=== PATIENT | male | born 1980 | race Caucasian/White ===

== ENCOUNTER 2018-05-08 22:35 | Emergency (ER) | payer SELFPAY ==
--- NOTE | 2018-05-08 22:48 | EDM.PDOC ---
ED HPI GENERAL MEDICAL PROBLEM - General Stated Complaint: PT CHOKE Time Seen by Provider: 05/08/18 22:44 - History of Present Illness INITIAL COMMENTS - FREE TEXT/NARRATIVE: HISTORY AND PHYSICAL: History of present illness: Patient 37-year-old white male presents status post esophageal food bolus in the form of boneless chicken wing he's had improvement during transport. He's had similar episodes in the past that have resolved spontaneously Review of systems: As per history of present illness and below otherwise all systems reviewed and negative. Past medical history: As per history of present illness and as reviewed below otherwise noncontributory. Surgical history: As per history of present illness and as reviewed below otherwise noncontributory. Social history: No reported history of drug or alcohol abuse. Family history: As per history of present illness and as reviewed below otherwise noncontributory. Physical exam: HEENT: Atraumatic, normocephalic, pupils reactive, negative for conjunctival pallor or scleral icterus, mucous membranes moist, throat clear, neck supple, nontender, trachea midline. Lungs: Clear to auscultation, breath sounds equal bilaterally, chest nontender. Heart: S1S2, regular, negative for clicks, rubs, or JVD. Abdomen: Soft, nondistended, nontender. Negative for masses or hepatosplenomegaly. Negative for costovertebral tenderness. Pelvis: Stable nontender. Genitourinary: Deferred. Rectal: Deferred. Extremities: Atraumatic, negative for cords or calf pain. Neurovascular unremarkable. Neuro: Awake, alert, oriented. Cranial nerves II through XII unremarkable. Cerebellum unremarkable. Motor and sensory unremarkable throughout. Exam nonfocal. Diagnostics: Chest x-ray EKG Therapeutics: None Impression: #1 esophageal food bolus resolved Definitive disposition and diagnosis as appropriate pending reevaluation and review of above. ED ROS GENERAL - Review of Systems Review Of Systems: ROS reveals no pertinent complaints other than HPI. ED EXAM, GENERAL - Physical Exam Exam: See Below (See dictation) Departure - Departure Time of Disposition: 22:46 Disposition: Home, Self-Care 01 Condition: Good Clinical Impression: Odynophagia - Discharge Information Referrals: PCP,None [Primary Care Provider] - Additional Instructions: The following information is given to patients seen in the emergency department who are being discharged to home. This information is to outline your options for follow-up care. We provide all patients seen in our emergency department with a follow-up referral. The need for follow-up, as well as the timing and circumstances, are variable depending upon the specifics of your emergency department visit. If you don't have a primary care physician on staff, we will provide you with a referral. We always advise you to contact your personal physician following an emergency department visit to inform them of the circumstance of the visit and for follow-up with them and/or the need for any referrals to a consulting specialist. The emergency department will also refer you to a specialist when appropriate. This referral assures that you have the opportunity for followup care with a specialist. All of these measure are taken in an effort to provide you with optimal care, which includes your followup. Under all circumstances we always encourage you to contact your private physician who remains a resource for coordinating your care. When calling for followup care, please make the office aware that this follow-up is from your recent emergency room visit. If for any reason you are refused follow-up, please contact the [facility] emergency department at and asked to speak to the emergency department charge nurse. [facility] - General Surgery Professional Building [address] [place] [address], [address] [place] [address] Clear liquids as directed follow-up Gen. surgery about for evaluation and possible endoscopy
--- NOTE | 2018-05-08 23:19 | CR ---
Indication: Possible foreign body in throat Technique: Chest 1 view Comparison: None Findings/Impression: Cardiovascular and mediastinum: Unremarkable cardiomediastinal silhouette for a portable technique. Lungs and pleural space: Lungs are clear. No sign of infiltrate or mass. No sign of pleural effusion. No pneumothorax. Bones and soft tissues: An apparent triangular density projecting over the trachea at the T3 level, although this could be artifactual, related to superimposition of shadows. Correlate with clinical evaluation. Dictated by Dejon Oliver MD @ 05/08/2018 11:17:44 PM Dictated by: Dejon Oliver MD @ 05/08/2018 23:17:50 (Electronically Signed)
== END 2018-05-08 23:45 | disposition home or self-care (01) ==
LOC: MW.ED 22:35
DX: R13.10 Dysphagia, unspecified (principal)
CPT/HCPCS: 71045; 71045-26; 93005; 99284-25

== ENCOUNTER 2018-10-25 11:47 | Emergency (ER) | payer MEDICAID ==
--- NOTE | 2018-10-25 12:01 | EDM.PDOC ---
ED HPI GENERAL MEDICAL PROBLEM - General Chief Complaint: Lower Extremity Injury/Pain Stated Complaint: PAIN IN KNEE Time Seen by Provider: 10/25/18 11:47 Source of Information: Reports: Patient History Limitations: Reports: No Limitations - History of Present Illness INITIAL COMMENTS - FREE TEXT/NARRATIVE: HISTORY AND PHYSICAL: History of present illness: Patient is a 38-year-old male presents to the ED today with concern of left knee pain 2-3 days. Patient denies any trauma or injury to the knee and states that the pain is worse when he puts weight on it. Patient states he is fully able to move the knee without difficulty or pain. Patient denies any prior injury of the knee. She denies any other associated symptoms. Patient denies fever, chills, chest pain, shortness of breath, or cough. Denies headache, neck stiff ness, change in vision, syncope, or near syncope. Denies nausea, vomiting, abdominal pain, diarrhea, constipation, or dysuria. Has not noted any blood in urine or stool. Patient has been eating and drinking appropriately. Review of systems: As per history of present illness and below otherwise all systems reviewed and negative. Past medical history: As per history of present illness and as reviewed below otherwise noncontributory. Surgical history: As per history of present illness and as reviewed below otherwise noncontributory. Social history: See social history for further information Family history: As per history of present illness and as reviewed below otherwise noncontributory. Physical exam: General: Patient is alert, oriented, and in no acute distress. Patient sitting comfortably on exam table. HEENT: Atraumatic, normocephalic, pupils equal and reactive bilaterally, negative for conjunctival pallor or scleral icterus, mucous membranes moist, TMs normal bilaterally, throat clear, neck supple, nontender, trachea midline. No drooling or trismus noted. No meningeal signs. No hot potato voice noted. Lungs: Clear to auscultation, breath sounds equal bilaterally, chest nontender. Heart: S1S2, regular rate and rhythm without overt murmur Abdomen: Soft, nondistended, nontender. Negative for masses or hepatosplenomegaly. Negative for costovertebral tenderness. Pelvis: Stable nontender. Genitourinary: Deferred. Rectal: Deferred. Skin: Intact, warm, dry. No lesions or rashes noted. Extremities: Atraumatic, negative for cords or calf pain. Neurovascular unremarkable. Patient has full range of motion of the knee without difficulty. Patient does express pain when asked to stand on the knee. No obvious deformity of the knee. Dorsalis pedis and posterior tibial pulses grossly intact with capillary refill less than 2 seconds. Neuro: Awake, alert, oriented. Cranial nerves II through XII unremarkable. Cerebellum unremarkable. Motor and sensory unremarkable throughout. Exam nonfocal. Notes: Discussed the importance for follow-up with primary care provider and with orthopedic. Voices understanding and is agreeable to plan of care. Denies any further questions or concerns at this time. Diagnostics: Knee x-ray Therapeutics: Toradol Prescription: Diclofenac Impression: Left knee pain, unspecified Plan: 1. Rest, ice, elevate the affected extremity. You can apply ice 15 minutes on, 15 minutes off. 2. Tylenol and/or Ibuprofen as directed for pain management or discomfort. Take medication as prescribed 3. Follow up with the Orthopedic provider as discussed. Return to the ED as needed and as discussed. Definitive disposition and diagnosis as appropriate pending reevaluation and review of above. - Related Data Allergies Allergy/AdvReac Type Severity Reaction Status Date / Time No Known Allergies Allergy Verified 05/08/18 22:45 Home Meds: Home Meds Diclofenac Sodium [Voltaren] 75 mg PO BIDMEALS PRN #8 tab.cr 10/25/18 [Rx] Past Medical History HEENT History: Reports: None Cardiovascular History: Reports: None Respiratory History: Reports: None Gastrointestinal History: Reports: None Genitourinary History: Reports: None Musculoskeletal History: Reports: None Neurological History: Reports: Headaches, Chronic, Migraines Psychiatric History: Reports: None Endocrine/Metabolic History: Reports: None Hematologic History: Reports: None Immunologic History: Reports: None Oncologic (Cancer) History: Reports: None Dermatologic History: Reports: None - Infectious Disease History Infectious Disease History: Reports: None - Past Surgical History Head Surgeries/Procedures: Reports: None HEENT Surgical History: Reports: None Social & Family History - Family History Family Medical History: Noncontributory - Tobacco Use Smoking Status *Q: Current Every Day Smoker Years of Tobacco use: 20 Packs/Tins Daily: 1 - Caffeine Use Caffeine Use: Reports: None - Recreational Drug Use Recreational Drug Use: No Review of Systems - Review of Systems Review Of Systems: ROS reveals no pertinent complaints other than HPI. ED EXAM, GENERAL - Physical Exam Exam: See Below (See dictation) Course - Vital Signs Last Recorded V/S: Last Vital Signs Temp 36.3 C 10/25/18 11:53 Pulse 84 10/25/18 11:53 Resp 20 10/25/18 11:53 BP 139/91 H 10/25/18 11:53 Pulse Ox 98 10/25/18 11:53 - Orders/Labs/Meds Meds: Medications Discontinued Medications Generic Name Dose Route Start Last Admin Trade Name Freq PRN Reason Stop Dose Admin Ketorolac Tromethamine 60 mg 10/25/18 12:02 10/25/18 12:33 Toradol IM 10/25/18 12:03 60 mg ONETIME ONE Administration Departure - Departure Time of Disposition: 12:43 Disposition: Home, Self-Care 01 Clinical Impression: Knee pain Qualifiers: Chronicity: acute Laterality: left Qualified Code(s): M25.562 - Pain in left knee - Discharge Information Prescriptions: Diclofenac Sodium [Voltaren] 75 mg PO BIDMEALS PRN #8 tab.cr PRN Reason: Pain Forms: ED Department Discharge Additional Instructions: The following information is given to patients seen in the emergency department who are being discharged to home. This information is to outline your options for follow-up care. We provide all patients seen in our emergency department with a follow-up referral. The need for follow-up, as well as the timing and circumstances, are variable depending upon the specifics of your emergency department visit. If you don't have a primary care physician on staff, we will provide you with a referral. We always advise you to contact your personal physician following an emergency department visit to inform them of the circumstance of the visit and for follow-up with them and/or the need for any referrals to a consulting specialist. The emergency department will also refer you to a specialist when appropriate. This referral assures that you have the opportunity for follow-up care with a specialist. All of these measure are taken in an effort to provide you with optimal care, which includes your follow-up. Under all circumstances we always encourage you to contact your private physician who remains a resource for coordinating your care. When calling for follow-up care, please make the office aware that this follow-up is from your recent emergency room visit. If for any reason you are refused follow-up, please contact the [facility] Emergency Department at and asked to speak to the emergency department charge nurse. [facility] [address] [place] [address] [address] [facility] Professional [facility] [address], [address] [place] [address] 1. Rest, ice, elevate the affected extremity. You can apply ice 15 minutes on, 15 minutes off. 2. Tylenol and/or Ibuprofen as directed for pain management or discomfort. Take medication as prescribed 3. Follow up with the Orthopedic provider as discussed. Return to the ED as needed and as discussed.
[2018-10-25] MEDS ORDERED: Ketorolac 60 MG/2 ML SDV IM ONE (12:02)
--- NOTE | 2018-10-25 12:42 | CR ---
INDICATION: Pain, no injury to knee. TECHNIQUE: Left knee three views COMPARISON: None FINDINGS AND IMPRESSION: No knee joint effusion. Normal alignment. No fracture. No significant degenerative changes. No soft tissue swelling. Dictated by Nichole German MD @ 10/25/2018 12:40:49 PM Dictated by: Nichole German MD @ 10/25/2018 12:40:56 (Electronically Signed)
== END 2018-10-25 15:00 | disposition home or self-care (01) ==
LOC: MW.ED 11:47
DX: M25.562 Pain in left knee (principal); F17.210 Nicotine dependence, cigarettes, uncomplicated
CPT/HCPCS: 73562; 96372; 99283; J1885

== ENCOUNTER 2018-10-29 12:19 | Emergency (ER) | payer MEDICAID ==
[2018-10-29] MEDS ORDERED: Sodium Chloride 0.9% 1,000 ML IV ONE (12:20)
--- NOTE | 2018-10-29 12:32 | EDM.PDOC ---
ED HPI GENERAL MEDICAL PROBLEM - General Stated Complaint: SEIZURE Time Seen by Provider: 10/29/18 12:23 Source of Information: Reports: Patient, EMS History Limitations: Reports: No Limitations - History of Present Illness INITIAL COMMENTS - FREE TEXT/NARRATIVE: HISTORY AND PHYSICAL: History of present illness: Patient is a 38-year-old male who presents to the emergency room by EMS after a syncopal event. Patient was at work when it was witnessed him having a syncopal event. States there may have been some seizure-like activity. Upon EMS arrival he appeared drowsy but alert. Patient does have a history of drug use, stating he last smoked meth yesterday. EMS did give 2 mg of Narcan which did not alleviate any of his symptoms/presentation. Upon arrival the patient is alert and oriented. He states he woke up and felt fine, proceeding to work. He states prior to his syncopal event he started to feel dizzy and lightheaded. His current complaint is feeling "out of it". He denies any pain at this time. Denies any urinary or fecal incontinence. No previous history of seizures or syncopal events. Patient denies any fever, chills, headache, change in vision, neck stiffness or pain. Denies any chest pain, back pain, shortness of breath or cough. Denies any abdominal pain, nausea, vomiting, diarrhea, constipation or dysuria. Patient had been eating and drinking appropriately. Review of systems: As per history of present illness and below otherwise all systems reviewed and negative. Past medical history: As per history of present illness and as reviewed below otherwise noncontributory. Surgical history: As per history of present illness and as reviewed below otherwise noncontributory. Social history: See social history for further information Family history: As per history of present illness and as reviewed below otherwise noncontributory. Physical exam: General: Well-developed and well-nourished 38-year-old male. Alert and oriented. Drowsy appearing but easily arousable. Nontoxic appearing and in no acute distress. Vital signs are stable and have been reviewed by me. HEENT: Atraumatic, normocephalic, pupils equal and reactive bilaterally, negative for conjunctival pallor or scleral icterus, mucous membranes moist, TMs normal bilaterally, throat clear, neck supple, nontender, trachea midline. No drooling or trismus noted. No meningeal signs. No hot potato voice noted. Lungs: Clear to auscultation, breath sounds equal bilaterally, chest nontender. Heart: S1S2, regular rate and rhythm without overt murmur Abdomen: Soft, nondistended, nontender. Negative for masses or hepatosplenomegaly. Negative for costovertebral tenderness. Pelvis: Stable nontender. Genitourinary: Deferred. Rectal: Good rectal tone. C-spine/Back: No pinpoint vertebral tenderness upon palpation. No crepitus, step -offs or obvious deformities. Patient is able to move all extremities without difficulty or deficits. Able to lift his toes up towards his nose with good strength bilaterally. Skin: Intact, warm, dry. No lesions or rashes noted. Extremities: Atraumatic, moves all extremities per self without difficulty or deficits, negative for cords or calf pain. Neurovascular unremarkable. Neuro: Awake, alert, oriented. Cranial nerves II through XII unremarkable. Cerebellum unremarkable. Motor and sensory unremarkable throughout. Exam nonfocal. Notes: Lab work is unremarkable with the exception of slightly lowered potassium level. Head CT is normal. EKG shows no acute findings. Vital signs are stable and have been reviewed by me. Discussed with patient the diagnostics. He is comfortable being discharged to home. Alter and orientated. I will give him time off of work to rest the remainder of the day. Supportive care measures were reviewed and discussed. Voices understanding and is agreeable to plan of care. Denies any further questions or concerns at this time. Diagnostics: Head CT, CXR, CBC, CMP, troponin, EKG, orthostatic vital signs, UA, urine drug screen Therapeutics: IV fluid Prescription: K-Dur x 5 days Impression: Hypokalemia Syncope Drug Abuse Plan: 1. Stop drug use. Your potassium was slightly low today. Please follow-up with your primary care provider to have your labs redrawn in the next week or so. 2. Get plenty of Rest. Encourage fluids to prevent dehydration. Please use Tylenol and/or Ibuprofen as needed for pain and fever management. 3. Please follow up with your primary care provider as we discussed. Return to the ED as needed as discussed. Definitive disposition and diagnosis as appropriate pending reevaluation and review of above. - Related Data Allergies Allergy/AdvReac Type Severity Reaction Status Date / Time No Known Allergies Allergy Verified 10/29/18 12:24 Home Meds: Home Meds Potassium Chloride [K-Tab ER] 40 meq PO DAILY 5 Days #10 tablet.er 10/29/18 [Rx] Past Medical History HEENT History: Reports: None Cardiovascular History: Reports: None Respiratory History: Reports: None Gastrointestinal History: Reports: None Genitourinary History: Reports: None Musculoskeletal History: Reports: None Neurological History: Reports: Headaches, Chronic, Migraines Psychiatric History: Reports: None Endocrine/Metabolic History: Reports: None Hematologic History: Reports: None Immunologic History: Reports: None Oncologic (Cancer) History: Reports: None Dermatologic History: Reports: None - Infectious Disease History Infectious Disease History: Reports: None - Past Surgical History Head Surgeries/Procedures: Reports: None HEENT Surgical History: Reports: None Social & Family History - Family History Family Medical History: Noncontributory - Caffeine Use Caffeine Use: Reports: None ED ROS GENERAL - Review of Systems Review Of Systems: ROS reveals no pertinent complaints other than HPI. ED EXAM, GENERAL - Physical Exam Exam: See Below (See dictation) Course - Vital Signs Last Recorded V/S: Last Vital Signs Temp 97.6 F 10/29/18 12:25 Pulse 97 10/29/18 12:25 Resp 18 10/29/18 12:25 BP 137/87 10/29/18 12:25 Pulse Ox 99 10/29/18 12:25 Orthostatic Blood Pressure [ 124/89 Standing] Orthostatic Blood Pressure [ 117/85 Sitting] Orthostatic Blood Pressure [ 124/85 Supine] - Orders/Labs/Meds Orders: Active Orders 24 hr Category Date Time Status EKG Documentation Completion [RC] STAT Care 10/29/18 12:20 Active Orthostatic Vital Signs [RC] ASDIRECTED Care 10/29/18 12:20 Active Potassium Chloride [Klor-Con M20] Med 10/29/18 13:15 Active 40 meq PO DAILY Medication Orders Potassium Chloride (Klor-Con M20) 40 meq PO DAILY IJEOMA Labs: Laboratory Tests 10/29/18 10/29/18 10/29/18 Range/Units 12:22 12:22 12:57 WBC 7.08 (4.0-11.0) K/uL RBC 4.37 L (4.50-5.90) M/uL Hgb 14.2 (13.0-17.0) g/dL Hct 40.5 (38.0-50.0) % MCV 92.7 (80.0-98.0) fL MCH 32.5 H (27.0-32.0) pg MCHC 35.1 (31.0-37.0) g/dL RDW Std Deviation 42.2 (28.0-62.0) fl RDW Coeff of Michele 12 (11.0-15.0) % Plt Count 298 (150-400) K/uL MPV 8.70 (7.40-12.00) fL Neut % (Auto) 65.4 (48.0-80.0) % Lymph % (Auto) 21.5 (16.0-40.0) % Moca % (Auto) 9.3 (0.0-15.0) % Eos % (Auto) 3.1 (0.0-7.0) % Baso % (Auto) 0.7 (0.0-1.5) % Neut # (Auto) 4.6 (1.4-5.7) K/uL Lymph # (Auto) 1.5 (0.6-2.4) K/uL Moca # (Auto) 0.7 (0.0-0.8) K/uL Eos # (Auto) 0.2 (0.0-0.7) K/uL Baso # (Auto) 0.1 (0.0-0.1) K/uL Nucleated RBC % 0.0 /100WBC Nucleated RBCs # 0 K/uL Sodium 137 (136-148) mmol/L Potassium 3.1 L (3.5-5.1) mmol/L Chloride 103 (98-107) mmol/L Carbon Dioxide 25.0 (21.0-32.0) mmol/L BUN 17 (7.0-18.0) mg/dL Creatinine 0.9 (0.8-1.3) mg/dL Est Cr Clr Drug Dosing 102.51 mL/min Estimated GFR (MDRD) > 60.0 ml/min Glucose 153 H (74-106) mg/dL Calcium 8.5 (8.5-10.1) mg/dL Total Bilirubin 0.8 (0.2-1.0) mg/dL AST 93 H (15-37) IU/L ALT 103 H (14-63) IU/L Alkaline Phosphatase 75 (46-116) U/L Troponin I < 0.050 (0.000-0.056) ng/mL Total Protein 6.5 (6.4-8.2) g/dL Albumin 3.1 L (3.4-5.0) g/dL Globulin 3.4 (2.6-4.0) g/dL Albumin/Globulin Ratio 0.9 (0.9-1.6) Urine Color YELLOW Urine Appearance CLEAR Urine pH 8.5 H (5.0-8.0) Ur Specific [place] 1.010 (1.001-1.035) Urine Protein TRACE H (NEGATIVE) mg/dL Urine Glucose (UA) NEGATIVE (NEGATIVE) mg/dL Urine Ketones NEGATIVE (NEGATIVE) mg/dL Urine Occult Blood NEGATIVE (NEGATIVE) Urine Nitrite NEGATIVE (NEGATIVE) Urine Bilirubin NEGATIVE (NEGATIVE) Urine Urobilinogen 1.0 (<2.0) EU/dL Ur Leukocyte Esterase NEGATIVE (NEGATIVE) Urine RBC NONE SEEN (0-2/HPF) Urine WBC NONE SEEN (0-5/HPF) Ur Epithelial Cells NOT SEEN (NONE-FEW) Urine Bacteria RARE (NEGATIVE) Urine Opiates Screen (NEGATIVE) Ur Oxycodone Screen (NEGATIVE) Urine Methadone Screen (NEGATIVE) Ur Barbiturates Screen (NEGATIVE) Ur Phencyclidine Scrn (NEGATIVE) Ur Amphetamine Screen (NEGATIVE) U Methamphetamines Scrn (NEGATIVE) U Benzodiazepines Scrn (NEGATIVE) U Cocaine Metab Screen (NEGATIVE) U Marijuana (THC) Screen (NEGATIVE) 10/29/18 Range/Units 12:57 WBC (4.0-11.0) K/uL RBC (4.50-5.90) M/uL Hgb (13.0-17.0) g/dL Hct (38.0-50.0) % MCV (80.0-98.0) fL MCH (27.0-32.0) pg MCHC (31.0-37.0) g/dL RDW Std Deviation (28.0-62.0) fl RDW Coeff of Michele (11.0-15.0) % Plt Count (150-400) K/uL MPV (7.40-12.00) fL Neut % (Auto) (48.0-80.0) % Lymph % (Auto) (16.0-40.0) % Moca % (Auto) (0.0-15.0) % Eos % (Auto) (0.0-7.0) % Baso % (Auto) (0.0-1.5) % Neut # (Auto) (1.4-5.7) K/uL Lymph # (Auto) (0.6-2.4) K/uL Moca # (Auto) (0.0-0.8) K/uL Eos # (Auto) (0.0-0.7) K/uL Baso # (Auto) (0.0-0.1) K/uL Nucleated RBC % /100WBC Nucleated RBCs # K/uL Sodium (136-148) mmol/L Potassium (3.5-5.1) mmol/L Chloride (98-107) mmol/L Carbon Dioxide (21.0-32.0) mmol/L BUN (7.0-18.0) mg/dL Creatinine (0.8-1.3) mg/dL Est Cr Clr Drug Dosing mL/min Estimated GFR (MDRD) ml/min Glucose (74-106) mg/dL Calcium (8.5-10.1) mg/dL Total Bilirubin (0.2-1.0) mg/dL AST (15-37) IU/L ALT (14-63) IU/L Alkaline Phosphatase (46-116) U/L Troponin I (0.000-0.056) ng/mL Total Protein (6.4-8.2) g/dL Albumin (3.4-5.0) g/dL Globulin (2.6-4.0) g/dL Albumin/Globulin Ratio (0.9-1.6) Urine Color Urine Appearance Urine pH (5.0-8.0) Ur Specific [place] (1.001-1.035) Urine Protein (NEGATIVE) mg/dL Urine Glucose (UA) (NEGATIVE) mg/dL Urine Ketones (NEGATIVE) mg/dL Urine Occult Blood (NEGATIVE) Urine Nitrite (NEGATIVE) Urine Bilirubin (NEGATIVE) Urine Urobilinogen (<2.0) EU/dL Ur Leukocyte Esterase (NEGATIVE) Urine RBC (0-2/HPF) Urine WBC (0-5/HPF) Ur Epithelial Cells (NONE-FEW) Urine Bacteria (NEGATIVE) Urine Opiates Screen NEGATIVE (NEGATIVE) Ur Oxycodone Screen NEGATIVE (NEGATIVE) Urine Methadone Screen NEGATIVE (NEGATIVE) Ur Barbiturates Screen NEGATIVE (NEGATIVE) Ur Phencyclidine Scrn NEGATIVE (NEGATIVE) Ur Amphetamine Screen POSITIVE (NEGATIVE) U Methamphetamines Scrn POSITIVE (NEGATIVE) U Benzodiazepines Scrn NEGATIVE (NEGATIVE) U Cocaine Metab Screen NEGATIVE (NEGATIVE) U Marijuana (THC) Screen NEGATIVE (NEGATIVE) Meds: Medications Generic Name Dose Route Start Last Admin Trade Name Freq PRN Reason Stop Dose Admin Potassium Chloride 40 meq 10/29/18 13:15 Klor-Con M20 PO DAILY IJEOMA Discontinued Medications Generic Name Dose Route Start Last Admin Trade Name Freq PRN Reason Stop Dose Admin Sodium Chloride 1,000 mls @ 999 mls/hr 10/29/18 12:20 10/29/18 12:38 Normal Saline IV 10/29/18 13:20 999 mls/hr STAT ONE Administration Departure - Departure Time of Disposition: 13:23 Disposition: Home, Self-Care 01 Clinical Impression: Hypokalemia, Drug abuse Syncope Qualifiers: Syncope type: unspecified Qualified Code(s): R55 - Syncope and collapse - Discharge Information Prescriptions: Potassium Chloride [K-Tab ER] 40 meq PO DAILY 5 Days #10 tablet.er Instructions: Syncope, [id number] Referrals: PCP,None [Ordering Only Provider] - Forms: ED Department Discharge Additional Instructions: The following information is given to patients seen in the emergency department who are being discharged to home. This information is to outline your options for follow-up care. We provide all patients seen in our emergency department with a follow-up referral. The need for follow-up, as well as the timing and circumstances, are variable depending upon the specifics of your emergency department visit. If you don't have a primary care physician on staff, we will provide you with a referral. We always advise you to contact your personal physician following an emergency department visit to inform them of the circumstance of the visit and for follow-up with them and/or the need for any referrals to a consulting specialist. The emergency department will also refer you to a specialist when appropriate. This referral assures that you have the opportunity for follow-up care with a specialist. All of these measure are taken in an effort to provide you with optimal care, which includes your follow-up. Under all circumstances we always encourage you to contact your private physician who remains a resource for coordinating your care. When calling for follow-up care, please make the office aware that this follow-up is from your recent emergency room visit. If for any reason you are refused follow-up, please contact the [facility] Emergency Department at and asked to speak to the emergency department charge nurse. [facility] [address] [place] [address] [facility] [address] [place] [address] 1. Stop drug use. Your potassium was slightly low today. Please follow-up with your primary care provider to have your labs redrawn in the next week or so. 2. Get plenty of Rest. Encourage fluids to prevent dehydration. Please use Tylenol and/or Ibuprofen as needed for pain and fever management. 3. Please follow up with your primary care provider as we discussed. Return to the ED as needed as discussed. - My Orders Last 24 Hours: My Active Orders 10/29/18 12:20 EKG Documentation Completion [RC] STAT Orthostatic Vital Signs [RC] ASDIRECTED 10/29/18 13:15 Potassium Chloride [Klor-Con M20] 40 meq PO DAILY - Assessment/Plan Last 24 Hours: My Active Orders 10/29/18 12:20 EKG Documentation Completion [RC] STAT Orthostatic Vital Signs [RC] ASDIRECTED 10/29/18 13:15 Potassium Chloride [Klor-Con M20] 40 meq PO DAILY
[2018-10-29 13:02] LABS: CHLORIDE,CL 103 mmol/L (98-107); SODIUM,NA 137 mmol/L (136-148)
--- NOTE | 2018-10-29 13:06 | CT ---
EXAMINATION: Non contrast CT head. Coronal and sagittal reformats. HISTORY: Syncope FINDINGS: No evidence of intra or extra axial hemorrhage, mass, midline shift, hydrocephalus or edema. No hypoattenuation changes in the major vascular territories to suggest acute infarct. No abnormal intracranial calcifications are detected. No evidence of substantial vascular calcifications. Paranasal sinuses and mastoid air cells are well aerated without substantial findings. Pituitary fossa appears unremarkable. Orbits and globes are symmetric. Calvarium is intact. No evidence of skull fracture. IMPRESSION: No acute intracranial findings.
[2018-10-29] MEDS ORDERED: Potassium Chloride 20 MEQ Tab.ER PO SCH (13:15)
== END 2018-10-29 13:33 | disposition home or self-care (01) ==
LOC: MW.ED 12:19
DX: R55 Syncope and collapse (principal); E87.6 Hypokalemia; F15.10 Other stimulant abuse, uncomplicated
CPT/HCPCS: 36415; 70450; 80053; 80305; 81001; 84484; 85025; 93005; 96360; 99285; A9270; J7040; 99284

== ENCOUNTER 2018-12-01 01:49 | Emergency (ER) | payer MEDICAID ==
[2018-12-01] MEDS ORDERED: Sodium Chloride 0.9% 1,000 ML IV ONE (02:07)
[2018-12-01] MEDS ORDERED: methylPREDNISolone Sodium Succinate 125 MG/2 ML SDV IVPUSH ONE (02:07)
[2018-12-01] MEDS ORDERED: diphenhydrAMINE 50 MG/ML SDV IVPUSH ONE (02:07)
[2018-12-01] MEDS ORDERED: Ondansetron 4 MG/2 ML SDV IVPUSH ONE (02:07)
[2018-12-01] MEDS ORDERED: Ketorolac 30 MG/ML SDV IVPUSH ONE (02:07)
[2018-12-01] MEDS ORDERED: Sodium Chloride 0.9% 10 ML Syringe FLUSH PRN (02:07)
[2018-12-01] MEDS ORDERED: Sodium Chloride 0.9% 2.5 ML Syringe FLUSH PRN (02:07)
--- NOTE | 2018-12-01 02:13 | EDM.PDOC ---
ED HPI GENERAL MEDICAL PROBLEM - General Chief Complaint: Headache Stated Complaint: AMB Time Seen by Provider: 12/01/18 02:02 - History of Present Illness INITIAL COMMENTS - FREE TEXT/NARRATIVE: HISTORY AND PHYSICAL: History of present illness: The patient is a 38-year-old male who presents with a frontal headache that started while he was at work and came via EMS for evaluation. The patient says that he has headaches every single day for the last 3 years but never wakes from sleep with them. The patient works overnight houseperson and said that he slept fine and got up and went to work and while he was at work headaches seem to get worse although he has a headache before he went to work and took ibuprofen over- the-counter. He has no prescribed medications for these headaches nor has he ever seen her provider about them to get a formal diagnosis or have any formal evaluation. He denies any recent trauma fevers runny nose sinus congestion or drainage sore throat or ear pain. He has no neck pain chest pain or shortness of breath no vomiting or diarrhea and he currently has no nausea. The patient says he does smoke cigarettes but denies drug use; it should be noted that he was here last month in October for syncopal event and admitted to meth use but on my last evening of that with him he says that he has not used since that visit. He does not drink an excessive amount of caffeine and tries to push hydration. He describes his headache as frontal part of his head and scalp but not in the back or time does not localize right or left. His headache that he is having currently is the same headache he has pretty much every day it is just worse than usual and he was at work and sent here. Review of systems: As per history of present illness and below otherwise all systems reviewed and negative. Past medical history: As per history of present illness and as reviewed below otherwise noncontributory. Surgical history: As per history of present illness and as reviewed below otherwise noncontributory. Social history: No reported history of drug or alcohol abuse. Family history: As per history of present illness and as reviewed below otherwise noncontributory. Physical exam: General: Well-developed well-nourished thin man who is nontoxic and vital signs were noted by me. Refers to keep his eyes closed and says that the light bothers him. HEENT: Atraumatic, normocephalic, pupils reactive, negative for conjunctival pallor or scleral icterus, mucous membranes moist, throat clear, neck supple, nontender, trachea midline. There is some tenderness when I palpate the frontal scalp throughout but there are no soft tissue swelling defects or deformities, there is no cervical adenopathy thyromegaly or nuchal rigidity and no discrete sinus tenderness with palpation. Lungs: Clear to auscultation, breath sounds equal bilaterally, chest nontender. Heart: S1S2, regular, negative for clicks, rubs, or JVD. Abdomen: Soft, nondistended, nontender. Negative for masses or hepatosplenomegaly. NABS Pelvis: Stable nontender. Genitourinary: Deferred. Rectal: Deferred. Extremities: Atraumatic, negative for cords or calf pain. Neurovascular unremarkable. Full range of motion Neuro: Awake, alert, oriented. Cranial nerves II through XII unremarkable. Cerebellum unremarkable. Motor and sensory unremarkable throughout. Exam nonfocal. Diagnostics: CT scan of the head Therapeutics: IV fluids Toradol Benadryl Solu-Medrol Zofran Imitrex tramadol I discussed with the patient that he needs to be seen by provider in the clinic for evaluation of these chronic headaches and to get a formal diagnosis and/or treatment plan in place to help eliminate or alleviate the headaches when they come. The patient did fall asleep in the ED and when I went in and woke him up he said his headache was improving but was still there. I did tell him that I cannot diagnose migraines but we would try some Imitrex here and I would also give him a tramadol as long as he did get a ride and sen him home with some more tramadol. I again told him that I would likely not be able to obliterate this headache and that he would need to sleep hydrate and follow up in the clinic as these headaches have been ongoing for the last 3 years a daily basis. Impression: Headache acute on chronic Definitive disposition and diagnosis as appropriate pending reevaluation and review of above. headache Pain Score (Numeric/FACES): 8 - Related Data Allergies Allergy/AdvReac Type Severity Reaction Status Date / Time No Known Allergies Allergy Verified 12/01/18 01:54 Home Meds: Home Meds . [No Known Home Meds] 12/01/18 [History] Past Medical History HEENT History: Reports: None Cardiovascular History: Reports: None Respiratory History: Reports: None Gastrointestinal History: Reports: None Genitourinary History: Reports: None Musculoskeletal History: Reports: None Neurological History: Reports: Headaches, Chronic Psychiatric History: Reports: Anxiety, Bipolar, Depression Endocrine/Metabolic History: Reports: None Hematologic History: Reports: None Immunologic History: Reports: None Oncologic (Cancer) History: Reports: None Dermatologic History: Reports: None - Infectious Disease History Infectious Disease History: Reports: Hepatitis B - Past Surgical History Head Surgeries/Procedures: Reports: None HEENT Surgical History: Reports: None Neurological Surgical History: Reports: None Social & Family History - Family History Family Medical History: Noncontributory - Tobacco Use Smoking Status *Q: Current Every Day Smoker Years of Tobacco use: 19 Packs/Tins Daily: 0.5 - Caffeine Use Caffeine Use: Reports: Coffee - Recreational Drug Use Recreational Drug Use: No ED ROS GENERAL - Review of Systems Review Of Systems: ROS reveals no pertinent complaints other than HPI. ED EXAM, GENERAL - Physical Exam Exam: See Below (See dictation) Course - Vital Signs Last Recorded V/S: Last Vital Signs Temp 36.3 C 12/01/18 02:46 Pulse 78 12/01/18 03:01 Resp 18 12/01/18 03:01 BP 99/57 L 12/01/18 03:01 Pulse Ox 99 12/01/18 03:01 - Orders/Labs/Meds Orders: Active Orders 24 hr Category Date Time Status Sodium Chloride 0.9% [Saline Flush] Med 12/01/18 02:07 Active 10 ml FLUSH ASDIRECTED PRN Sodium Chloride 0.9% [Saline Flush] Med 12/01/18 02:07 Active 2.5 ml FLUSH ASDIRECTED PRN Saline Lock Insert [OM.PC] Stat Oth 12/01/18 02:07 Ordered Medication Orders Sodium Chloride (Saline Flush) 10 ml FLUSH ASDIRECTED PRN PRN Reason: Keep Vein Open Sodium Chloride (Saline Flush) 2.5 ml FLUSH ASDIRECTED PRN PRN Reason: Keep Vein Open Meds: Medications Generic Name Dose Route Start Last Admin Trade Name Freq PRN Reason Stop Dose Admin Sodium Chloride 10 ml 12/01/18 02:07 Saline Flush FLUSH ASDIRECTED PRN Keep Vein Open Sodium Chloride 2.5 ml 12/01/18 02:07 Saline Flush FLUSH ASDIRECTED PRN Keep Vein Open Discontinued Medications Generic Name Dose Route Start Last Admin Trade Name Lucia PRN Reason Stop Dose Admin Diphenhydramine HCl 50 mg 12/01/18 02:07 12/01/18 02:32 Benadryl IVPUSH 12/01/18 02:08 50 mg ONETIME ONE Administration Sodium Chloride 1,000 mls @ 999 mls/hr 12/01/18 02:07 12/01/18 02:15 Normal Saline IV 12/01/18 03:07 999 mls/hr STAT ONE Administration Ketorolac Tromethamine 30 mg 12/01/18 02:07 12/01/18 02:16 Toradol IVPUSH 12/01/18 02:08 30 mg ONETIME ONE Administration Methylprednisolone Sodium Succinate 125 mg 12/01/18 02:07 12/01/18 02:37 Solu-Medrol IVPUSH 12/01/18 02:08 125 mg ONETIME ONE Administration Ondansetron HCl 4 mg 12/01/18 02:07 12/01/18 02:32 Zofran IVPUSH 12/01/18 02:08 4 mg ONETIME ONE Administration Sumatriptan Succinate 6 mg 12/01/18 02:57 12/01/18 03:01 Imitrex SUBCUT 12/01/18 02:58 6 mg ONETIME ONE Administration Tramadol HCl 50 mg 12/01/18 03:17 Ultram PO 12/01/18 03:18 ONETIME ONE Departure - Departure Time of Disposition: 03:27 Disposition: Home, Self-Care 01 Condition: Good Clinical Impression: Headache Qualifiers: Headache type: unspecified Headache chronicity pattern: unspecified pattern Intractability: not intractable Qualified Code(s): R51 - Headache - Discharge Information Referrals: PCP,None [Primary Care Provider] - Forms: ED Department Discharge Additional Instructions: The following information is given to patients seen in the emergency department who are being discharged to home. This information is to outline your options for follow-up care. We provide all patients seen in our emergency department with a follow-up referral. The need for follow-up, as well as the timing and circumstances, are variable depending upon the specifics of your emergency department visit. If you don't have a primary care physician on staff, we will provide you with a referral. We always advise you to contact your personal physician following an emergency department visit to inform them of the circumstance of the visit and for follow-up with them and/or the need for any referrals to a consulting specialist. The emergency department will also refer you to a specialist when appropriate. This referral assures that you have the opportunity for followup care with a specialist. All of these measure are taken in an effort to provide you with optimal care, which includes your followup. Under all circumstances we always encourage you to contact your private physician who remains a resource for coordinating your care. When calling for followup care, please make the office aware that this follow-up is from your recent emergency room visit. If for any reason you are refused follow-up, please contact the [facility] emergency department at and ask to speak to the emergency department charge nurse. Primary care- Internal Medicine [facility] Family [address] [id number] Push hydration and rest as much as possible avoiding any heat and stressors. Use [id number] ibuprofen/Motrin in the appropriate doses for your weight, 600 mg every 6-8 hours. You may also add the tramadol you were prescribed from [facility]. Please call and schedule an appointment with your provider or one of ours to further investigate these chronic headaches. Return to ER as needed and as discussed - My Orders Last 24 Hours: My Active Orders 12/01/18 02:07 Sodium Chloride 0.9% [Saline Flush] 10 ml FLUSH ASDIRECTED PRN Sodium Chloride 0.9% [Saline Flush] 2.5 ml FLUSH ASDIRECTED PRN Saline Lock Insert [OM.PC] Stat - Assessment/Plan Last 24 Hours: My Active Orders 12/01/18 02:07 Sodium Chloride 0.9% [Saline Flush] 10 ml FLUSH ASDIRECTED PRN Sodium Chloride 0.9% [Saline Flush] 2.5 ml FLUSH ASDIRECTED PRN Saline Lock Insert [OM.PC] Stat
--- NOTE | 2018-12-01 02:36 | CT ---
INDICATION: Migraine headache TECHNIQUE: CT head without contrast. COMPARISON: None FINDINGS: CSF spaces: Within normal limits for age. Brain parenchyma: The chen-white differentiation is normal. No sign of mass, hemorrhage, or midline shift. Skull base and calvarium: The visualized paranasal sinuses and mastoid air cells demonstrate no acute or significant findings. The visualized orbits are grossly unremarkable. No skull fractures. IMPRESSION: Unremarkable noncontrast head CT. Please note that all CT scans at this facility use dose modulation, iterative reconstruction, and/or weight-based dosing when appropriate to reduce radiation dose to as low as reasonably achievable. Dictated by Tonie Kwong MD @ Dec 01 2018 2:32AM Signed by Dr. Tonie Kwong @ Dec 01 2018 2:33AM
[2018-12-01] MEDS ORDERED: SUMAtriptan 6 MG/0.5 ML SDV SUBCUT ONE (02:57)
[2018-12-01] MEDS ORDERED: traMADol 50 MG Tab PO ONE (03:17)
--- NOTE | 2018-12-01 03:28 | PCM.SN ---
- Free Text/Narrative Note: Called to assist ER MD after failed/attempted spinal tap. Patient consented, to sitting position, prepped draped, local to site, 20 g spinal needle to CSF 1CC to each vial x 4 vials. Patient tolerated well.
== END 2018-12-01 03:39 | disposition home or self-care (01) ==
LOC: MW.ED 01:49
DX: R51 Headache (principal); F17.210 Nicotine dependence, cigarettes, uncomplicated
CPT/HCPCS: 70450; 96361; 96372; 96374; 96375; 99284; A9270; J1200; J1885; J2405; J2930; J3030; J7040

== ENCOUNTER 2019-05-26 02:35 | Emergency (ER) | payer MEDICAID ==
[2019-05-26] MEDS ORDERED: Ondansetron 4 MG/2 ML SDV IVPUSH ONE (02:37)
[2019-05-26] MEDS ORDERED: Sodium Chloride 0.9% 1,000 ML IV ONE (02:37)
[2019-05-26 03:12] LABS: BLOOD UREA NITROGEN,BUN 10 mg/dL (7.0-18.0); CARBON DIOXIDE,CO2 29.7 mmol/L (21.0-32.0); CHLORIDE,CL 106 mmol/L (98-107); GLUCOSE RANDOM 108 mg/dL (74-106); LIPASE 334 U/L (73-393); POTASSIUM,K 4.4 mmol/L (3.5-5.1); SODIUM,NA 141 mmol/L (136-148)
[2019-05-26] MEDS ORDERED: Iopamidol 755 Mg/ML 100 ML Bottle IVPUSH ONE (03:35)
--- NOTE | 2019-05-26 04:10 | CT ---
INDICATION: Periumbilical pain with emesis. TECHNIQUE: CT abdomen and pelvis acquired with 100 cc Isovue 370 intravenous contrast. COMPARISON: None. FINDINGS: Lower chest: Unremarkable. Liver: Unremarkable. Normal in size and attenuation. No masses. Gallbladder and bile ducts: Unremarkable. No stones or inflammation. No biliary dilatation. Pancreas: Unremarkable. No mass or inflammation. Spleen: Unremarkable. Normal in size. No masses. Adrenal glands: Unremarkable. No nodules. Kidneys: Symmetric enhancement without hydronephrosis subcentimeter hypodense lesions both kidneys which are too small for characterization although visually likely represent cysts. GI tract: No dilated loops of large or small intestine. Appendix partially seen and where identified appears unremarkable. No right lower quadrant inflammation. Mild fold thickening questioned at the proximal small bowel (203, 33). Vasculature: Atherosclerosis without abdominal aortic aneurysm. Pelvis: Unremarkable. Bones: Unremarkable for age. IMPRESSION: 1. Mild proximal small bowel fold thickening questioned. There is a bit nonspecific although most commonly seen in enteritis in the acute setting. 2. Otherwise essentially unremarkable abdomen and pelvis CT as above. Please note that all CT scans at this facility use dose modulation, iterative reconstruction, and/or weight-based dosing when appropriate to reduce radiation dose to as low as reasonably achievable. Dictated by Mario Chung MD @ May 26 2019 4:00AM Signed by Dr. Mario Chung @ May 26 2019 4:09AM
--- NOTE | 2019-05-26 04:34 | EDM.PDOC ---
ED HPI GENERAL MEDICAL PROBLEM - General Chief Complaint: Gastrointestinal Problem Stated Complaint: AMB Time Seen by Provider: 05/26/19 03:00 - History of Present Illness INITIAL COMMENTS - FREE TEXT/NARRATIVE: HPI 38-year-old male presents for evaluation of nausea and vomiting of 3-4 days duration. Continues to take PO adequately pass urine, flatus, stool baseline, endorses mild diffuse abdominal discomfort that does not appear to have recently changed. Patient reports he presented for evaluation this evening as he had recurrent symptoms at work and had a syncopal event. Patient denies history of seizures. Notes that he was unconscious for several moments, denies injuries during his LOC. Denies IVDU (within last year), no chest pain, fevers, chills. M/S/F/SocHx notable for: please see HPI; remainder reviewed with patient and in chart. ROS: Negative constitutional, eye, cardiovascular, pulmonary, GI, , MSK, skin , neurologic, psychiatric, endocrine unless noted in the HPI. Exam HR 76, RR 18, BP 119/79, T 36.2C, SaO2 98% on room air. Gen: Pleasant, non-toxic appearing, resting comfortably. HEENT: NC, AT, PEERL, EOMI. Resp: Clear to auscultation bilaterally, normal work of breathing, no accessory muscle usage. Card: Regular rate and rhythm with no murmurs, rubs, or gallops, extremities warm and well perfused. GI: mild, non-reproducible, tenderness to palpation greatest in the epigastrium , left upper quadrant, and periumbilical area, remainder of abdomen nontender to palpation, no rebound, no guarding. : No suprapubic tenderness to palpation. MSK: No visible deformities, strength and tone without visually appreciable deficit. Skin: Normal color with no visible lesions. Neuro: alert and oriented 3, no facial asymmetry, no gaze preference, no slurring of speech. Pupils equal and reactive, EOMI, no facial asymmetry, no nystagmus, phonation intact, SCM 5/5 bilaterally. Cerebellar: bilateral upper extremities without dysmetria. Psych: unusual mood and affect. Labs / Imaging: EKG: SR at [address]-segment elevations or depressions, T-wave inversions or new LBBB. MO interval 171 msec, QTc 401 msec, no delta waves, epsilon waves, coved or saddle ST-segment changes in leads V1-3, preseptal or inferior lead Q-waves, biphasic P-waves, or T-wave inversions; no LVH. WBC 5.9, HB 15.1, sodium 141, potassium 4.4, creatinine 0.7, calcium 9.3, magnesium 1.7, total bilirubin 0.3, AST 106, ALT 95, alkaline phosphatase 70, lipase 334. UA - negative nitrate, negative leukocyte esterase. UDS negative. CT Abd/Pelvis: 1. Mild proximal small bowel fold thickening questioned There is a bit nonspecific although most commonly seen in enteritis in the acute setting. 2 Otherwise essentially unremarkable abdomen and pelvis CT as above. MDM Previous chart, nursing note, labs, imaging, and vitals reviewed. A: 38-year-old male presents for evaluation of nausea and vomiting of 3-4 days duration. DDx: electrode abnormalities, dehydration, conduction abnormalities/arrhythmia, acute appendicitis, enteritis, mesenteric adenitis, epiploic appendagitis, biliary disease, pancreatitis, cannabinoid hyperemesis syndrome. Evaluation: laboratory studies notable for normal white blood cell count, mild ( and not felt to be clinically significant) hypocalcemia and hypomagnesemia. ECG without evidence of arrhythmia or clinically significant conduction abnormalities. Given the unremarkable cardiac ROS and exam strongly doubt valvular abnormalities or endocarditis. Lipase WNL. Given the normal liver enzymes and an absence of positive findings on CT consider biliary disease to be effectively excluded. Imaging without evidence of clinically significant intrabdominal processes, with the exception of features consistent with mild enteritis. This is consistent with the patient's overall history. No features suggestive of sepsis or significant dehydration. ED Course: * 1 L NS and 4 mg Zofran given for symptomatic treatment. * 04:24 - repeat evaluation with patient resting comfortably. Patient with good interval urine output. Abdominal exam benign. Disposition: discharge with RX for Zofran, PCP follow-up for repeat evaluation recommended. Impression: vomiting, syncope, enteritis. Abdomen Pain Score (Numeric/FACES): 4 - Related Data Allergies Allergy/AdvReac Type Severity Reaction Status Date / Time No Known Allergies Allergy Verified 05/26/19 02:38 Home Meds: Home Meds Ondansetron [Zofran ODT] 4 mg PO Q6H PRN #12 tab.dis 05/26/19 [Rx] Past Medical History HEENT History: Reports: None Cardiovascular History: Reports: None Respiratory History: Reports: None Gastrointestinal History: Reports: None Genitourinary History: Reports: None Musculoskeletal History: Reports: None Neurological History: Reports: Headaches, Chronic Psychiatric History: Reports: Anxiety, Bipolar, Depression Endocrine/Metabolic History: Reports: None Insulin Pump Model and Certified Phlebotomy Technician: None Hematologic History: Reports: None Immunologic History: Reports: None Oncologic (Cancer) History: Reports: None Dermatologic History: Reports: None - Infectious Disease History Infectious Disease History: Reports: Hepatitis B - Past Surgical History Head Surgeries/Procedures: Reports: None HEENT Surgical History: Reports: None Neurological Surgical History: Reports: None Social & Family History - Family History Family Medical History: Noncontributory - Tobacco Use Smoking Status *Q: Current Every Day Smoker Years of Tobacco use: 20 Packs/Tins Daily: 0.5 - Caffeine Use Caffeine Use: Reports: None - Recreational Drug Use Recreational Drug Use: Yes Drug Use in Last 12 Months: Yes Recreational Drug Type: Reports: Marijuana/Hashish ED ROS GENERAL - Review of Systems Review Of Systems: See Below ED EXAM, GENERAL - Physical Exam Exam: See Below Course - Vital Signs Last Recorded V/S: Last Vital Signs Temp 36.2 C 05/26/19 02:35 Pulse 76 05/26/19 02:35 Resp 18 05/26/19 02:35 BP 118/79 05/26/19 02:35 Pulse Ox 98 05/26/19 02:35 - Orders/Labs/Meds Orders: Active Orders 24 hr Category Date Time Status EKG 12 Lead [EKG Documentation Completion] [RC] STAT Care 05/26/19 02:37 Active Labs: Laboratory Tests 05/26/19 05/26/19 05/26/19 Range/Units 02:35 02:35 02:40 WBC 5.89 (4.0-11.0) K/uL RBC 4.72 (4.50-5.90) M/uL Hgb 15.1 (13.0-17.0) g/dL Hct 43.9 (38.0-50.0) % MCV 93.0 (80.0-98.0) fL MCH 32.0 (27.0-32.0) pg MCHC 34.4 (31.0-37.0) g/dL RDW Std Deviation 43.8 (28.0-62.0) fl RDW Coeff of Michele 13 (11.0-15.0) % Plt Count 284 (150-400) K/uL MPV 8.80 (7.40-12.00) fL Neut % (Auto) 43.2 L (48.0-80.0) % Lymph % (Auto) 41.4 H (16.0-40.0) % [place] % (Auto) 10.0 (0.0-15.0) % Eos % (Auto) 3.7 (0.0-7.0) % Baso % (Auto) 1.7 H (0.0-1.5) % Neut # (Auto) 2.5 (1.4-5.7) K/uL Lymph # (Auto) 2.4 (0.6-2.4) K/uL [place] # (Auto) 0.6 (0.0-0.8) K/uL Eos # (Auto) 0.2 (0.0-0.7) K/uL Baso # (Auto) 0.1 (0.0-0.1) K/uL Nucleated RBC % 0.0 /100WBC Nucleated RBCs # 0 K/uL Sodium 141 (136-148) mmol/L Potassium 4.4 (3.5-5.1) mmol/L Chloride 106 (98-107) mmol/L Carbon Dioxide 29.7 (21.0-32.0) mmol/L BUN 10 (7.0-18.0) mg/dL Creatinine 0.7 L (0.8-1.3) mg/dL Est Cr Clr Drug Dosing 131.80 mL/min Estimated GFR (MDRD) > 60.0 ml/min Glucose 108 H (74-106) mg/dL Calcium 8.3 L (8.5-10.1) mg/dL Magnesium 1.7 L (1.8-2.4) mg/dL Total Bilirubin 0.3 (0.2-1.0) mg/dL AST 106 H (15-37) IU/L ALT 95 H (14-63) IU/L Alkaline Phosphatase 70 (46-116) U/L Total Protein 6.8 (6.4-8.2) g/dL Albumin 3.2 L (3.4-5.0) g/dL Globulin 3.6 (2.6-4.0) g/dL Albumin/Globulin Ratio 0.9 (0.9-1.6) Lipase 334 (73-393) U/L Urine Color YELLOW Urine Appearance CLEAR Urine pH 6.0 (5.0-8.0) Ur Specific [place] 1.020 (1.001-1.035) Urine Protein NEGATIVE (NEGATIVE) mg/dL Urine Glucose (UA) NEGATIVE (NEGATIVE) mg/dL Urine Ketones NEGATIVE (NEGATIVE) mg/dL Urine Occult Blood NEGATIVE (NEGATIVE) Urine Nitrite NEGATIVE (NEGATIVE) Urine Bilirubin NEGATIVE (NEGATIVE) Urine Urobilinogen 1.0 (<2.0) EU/dL Ur Leukocyte Esterase NEGATIVE (NEGATIVE) Urine Opiates Screen (NEGATIVE) Ur Oxycodone Screen (NEGATIVE) Urine Methadone Screen (NEGATIVE) Ur Barbiturates Screen (NEGATIVE) Ur Phencyclidine Scrn (NEGATIVE) Ur Amphetamine Screen (NEGATIVE) U Methamphetamines Scrn (NEGATIVE) U Benzodiazepines Scrn (NEGATIVE) U Cocaine Metab Screen (NEGATIVE) U Marijuana (THC) Screen (NEGATIVE) 05/26/19 Range/Units 02:40 WBC (4.0-11.0) K/uL RBC (4.50-5.90) M/uL Hgb (13.0-17.0) g/dL Hct (38.0-50.0) % MCV (80.0-98.0) fL MCH (27.0-32.0) pg MCHC (31.0-37.0) g/dL RDW Std Deviation (28.0-62.0) fl RDW Coeff of Michele (11.0-15.0) % Plt Count (150-400) K/uL MPV (7.40-12.00) fL Neut % (Auto) (48.0-80.0) % Lymph % (Auto) (16.0-40.0) % [place] % (Auto) (0.0-15.0) % Eos % (Auto) (0.0-7.0) % Baso % (Auto) (0.0-1.5) % Neut # (Auto) (1.4-5.7) K/uL Lymph # (Auto) (0.6-2.4) K/uL [place] # (Auto) (0.0-0.8) K/uL Eos # (Auto) (0.0-0.7) K/uL Baso # (Auto) (0.0-0.1) K/uL Nucleated RBC % /100WBC Nucleated RBCs # K/uL Sodium (136-148) mmol/L Potassium (3.5-5.1) mmol/L Chloride (98-107) mmol/L Carbon Dioxide (21.0-32.0) mmol/L BUN (7.0-18.0) mg/dL Creatinine (0.8-1.3) mg/dL Est Cr Clr Drug Dosing mL/min Estimated GFR (MDRD) ml/min Glucose (74-106) mg/dL Calcium (8.5-10.1) mg/dL Magnesium (1.8-2.4) mg/dL Total Bilirubin (0.2-1.0) mg/dL AST (15-37) IU/L ALT (14-63) IU/L Alkaline Phosphatase (46-116) U/L Total Protein (6.4-8.2) g/dL Albumin (3.4-5.0) g/dL Globulin (2.6-4.0) g/dL Albumin/Globulin Ratio (0.9-1.6) Lipase (73-393) U/L Urine Color Urine Appearance Urine pH (5.0-8.0) Ur Specific [place] (1.001-1.035) Urine Protein (NEGATIVE) mg/dL Urine Glucose (UA) (NEGATIVE) mg/dL Urine Ketones (NEGATIVE) mg/dL Urine Occult Blood (NEGATIVE) Urine Nitrite (NEGATIVE) Urine Bilirubin (NEGATIVE) Urine Urobilinogen (<2.0) EU/dL Ur Leukocyte Esterase (NEGATIVE) Urine Opiates Screen NEGATIVE (NEGATIVE) Ur Oxycodone Screen NEGATIVE (NEGATIVE) Urine Methadone Screen NEGATIVE (NEGATIVE) Ur Barbiturates Screen NEGATIVE (NEGATIVE) Ur Phencyclidine Scrn NEGATIVE (NEGATIVE) Ur Amphetamine Screen NEGATIVE (NEGATIVE) U Methamphetamines Scrn NEGATIVE (NEGATIVE) U Benzodiazepines Scrn NEGATIVE (NEGATIVE) U Cocaine Metab Screen NEGATIVE (NEGATIVE) U Marijuana (THC) Screen NEGATIVE (NEGATIVE) Meds: Medications Discontinued Medications Generic Name Dose Route Start Last Admin Trade Name Freq PRN Reason Stop Dose Admin Sodium Chloride 1,000 mls @ 1,000 mls/hr 05/26/19 02:37 05/26/19 02:44 Normal Saline IV 05/26/19 03:36 1,000 mls/hr .Bolus ONE Administration Iopamidol 100 ml 05/26/19 03:35 05/26/19 03:36 Isovue-370 (76%) IVPUSH 05/26/19 03:36 100 ml ONETIME ONE Administration Ondansetron HCl 4 mg 05/26/19 02:37 05/26/19 02:44 Zofran IVPUSH 05/26/19 02:38 4 mg ONETIME ONE Administration Departure - Departure Time of Disposition: 04:34 Disposition: Home, Self-Care 01 Clinical Impression: Gastroenteritis - Discharge Information Prescriptions: Ondansetron [Zofran ODT] 4 mg PO Q6H PRN #12 tab.dis PRN Reason: Nausea Instructions: Viral Gastroenteritis, Adult, [id number] Referrals: PCP,None [Primary Care Provider] - Additional Instructions: You were in seen in the [facility] Emergency Department for evaluation of nausea, vomiting, and passing out. At the time of your evaluation you are tentatively suspected to have a viral illness causing nausea and vomiting. You have been prescribed Zofran, an antinausea medication. Please take this as prescribed and follow-up your primary care physician tomorrow for repeat evaluation. You also noted to have mild electrolyte abnormalities, please eat a well-balanced diet and follow up with your primary care physician for repeat evaluation. Please read and follow all of the instructions below. When calling for follow-up care, please make the office aware that this follow- up is from your recent emergency room visit. If for any reason you are refused follow-up, please contact the [facility] Emergency Department at and asked to speak to the emergency department charge nurse. Your care today was limited to identifying and treating emergent medical problems only. Many people have subtle differences in their test results that require follow up with their outpatient physician(s) to correctly determine if this represents a normal variation or concerning abnormality with respect to your specific health. The care given to you today was limited to identifying and treating emergent medical problems - you need to request a copy of all of your medical records from today's visit and follow up with your outpatient physician(s) to review both today's visit and your overall health. If you have any new symptoms or if you are at all concerned about your health please return immediately to the emergency department. Ondansetron (Brand Name: Zofran) * Take one tablet every 6 hours as needed for nausea SIDE EFFECTS: Headache, fever, lightheadedness, dizziness, drowsiness, tiredness , constipation. If these effects persist or worsen, notify your doctor promptly. Many people using this medication do not have serious side effects. Tell your doctor right away if you have any serious side effects, including: stomach pain, muscle stiffness/spasm, vision changes (e.g., temporary loss of vision, blurred vision, uncontrollable eye movements). Get medical help right away if any of these rare but very serious side effects occur: chest pain, fainting, slow/fast/irregular heartbeat. A very serious allergic reaction to this drug is rare. However, get medical help right away if you notice any of the following symptoms of a serious allergic reaction: rash, itching/swelling ( especially of the face/tongue/throat), severe dizziness, trouble breathing. This is not a complete list of possible side effects. If you notice other effects not listed above, contact your doctor or pharmacist. PRECAUTIONS: Before using ondansetron, tell your doctor or pharmacist if you are allergic to it; or to other serotonin blockers (e.g., granisetron); or if you have any other allergies. This product may contain inactive ingredients, which can cause allergic reactions or other problems. Talk to your pharmacist for more details. Before using this medication, tell your doctor or pharmacist your medical history, especially of: irregular heartbeat, liver disease, stomach /intestinal problems (e.g., recent abdominal surgery, ileus, swelling). Ondansetron may cause a condition that affects the heart rhythm (QT prolongation ). QT prolongation can infrequently result in serious (rarely fatal) fast/ irregular heartbeat and other symptoms (such as severe dizziness, fainting) that require immediate medical attention. The risk of QT prolongation may be increased if you have certain medical conditions or are taking other drugs that may affect the heart rhythm (see also Drug Interactions section). Before using ondansetron, tell your doctor or pharmacist if you have any of the following conditions: certain heart problems (heart failure, slow heartbeat, QT prolongation in the EKG), family history of certain heart problems (QT prolongation in the EKG, sudden cardiac ). Low levels of potassium or magnesium in the blood may also increase your risk of QT prolongation. This risk may increase if you use certain drugs (such as diuretics/"water pills") or if you have conditions such as severe sweating, diarrhea, or vomiting. Talk to your doctor about using ondansetron safely. This drug may make you dizzy or drowsy or cause blurred vision. Do not drive, use machinery, or do any activity that requires alertness or clear vision until you are sure you can perform such activities safely. Limit alcoholic beverages. Infants younger than 5 months may be more sensitive to the effects of this drug, especially diarrhea. During , this medication should be used only when clearly needed. Discuss the risks and benefits with your doctor. It is not known if this drug passes into breast milk. Consult your doctor before breast-feeding. DRUG INTERACTIONS: Drug interactions may change how your medications work or increase your risk for serious side effects. This document does not contain all possible drug interactions. Keep a list of all the products you use (including prescription/nonprescription drugs and herbal products) and share it with your doctor and pharmacist. Do not start, stop, or change the dosage of any medicines without your doctor's approval. Some products that may interact with this drug include: apomorphine, tramadol. Many drugs besides ondansetron may affect the heart rhythm (QT prolongation), including dofetilide, pimozide, procainamide, amiodarone, quinidine, sotalol, macrolide antibiotics (such as erythromycin), among others. Therefore, before using ondansetron, report all medications you are currently using to your doctor or pharmacist. Syncope * You have had a fainting (syncopal) spell. A fainting episode is a sudden and brief loss of consciousness. * We do not believe your syncopal episode today was caused by a serious problem. * You should . * Please followup with your primary care physician within 1-2 days for reevaluation, review of your current medications, and further workup or treatment if necessary. There are many causes for syncope and it can be difficult to fully diagnose each cause of syncope in the emergency department. Some of the most common causes of syncope are: * Blood pressure pills and other medications that may lower blood pressure below normal. * Sudden changes in posture (sudden standing). * Standing too long. This can cause blood to pool in the legs. * Seizure disorders. * Low blood sugar (hypoglycemia) of diabetes. * Bearing down to go to the bathroom. This can cause your blood pressure to rise suddenly. Your body compensates by making the blood pressure too low when you stop bearing down. * Hardening of the arteries where the brain temporarily does not receive enough blood. * Irregular heart beat and circulatory problems. * Fear, emotional distress, injury, sight of blood, or illness. Seek immediate medical care if: * You have another fainting episode or faint while lying or sitting down. DO NOT DRIVE YOURSELF. Call 911 if no other help is available. * You have chest pain, are feeling sick to your stomach (nausea), vomiting or abdominal pain. * You have an irregular heartbeat or one that is very fast (pulse over 120 beats per minute). * You have a loss of feeling in some part of your body or lose movement in your arms or legs. * You have difficulty with speech, confusion, severe weakness, or visual problems. * You become sweaty and/or feel light headed. Prescriptions: If you are uninsured or have financial difficulties with filling your prescription(s), you may consider using a free pharmacy discount service such as [employer] ([employer]) or [employer] ([employer]). These services allow you to search for a medication on your phone (or computer) and obtain a coupon that usually has a significant discount from the list reed at a pharmacy. Your physician as well as [facility] does not have a financial relationship with either of these services. You may also wish to speak with your physician to determine if lower cost prescriptions are possible. Obtaining primary care: 1. [facility] provides pediatrics (children), family medicine (children, adults, and some obstetrical care), and internal medicine (adults). Further specialty care is also available. Same day appointments are available. They may be contacted at [phone] and are open Friday through Friday 8 AM to [address] [facility] are located at [place] [address]. 2. [facility] offers family medicine, internal medicine, [facility]ial care hospital, and further specialty care. [facility] may be contacted at [phone]. [facility] is located at [address] [place], [address]. 3. If you have health insurance, please also contact your insurer for a list of accepting providers under your policy, you may contact these providers for further health care. Occupational health: Work related injuries may consider following up with [facility], . Occupational health services are located at [address] [place] [address] and are open Friday through Friday from 7: 30 am to 5:00 pm. Obstetrical and Gynecological Care: [facility], , Friday through Friday 8 AM to 5 PM. [address] [place] [address]. Eyecare: If you have an eye injury you should follow up with your pool nurse or with [facility], at [phone] or [phone] , they are located at [address] [place] [address]. Dental Care * Frankie Garcia DDS. [address] [place], [place]. Ph. [phone] * Chadd Garcia DDS MS. [address] [facility] [address], [place], [place]. Ph. [phone] * Scot Dobbs DDS. [address] [place]. Ph. [phone] * Parveen Pleitez DDS. [address] [facility] [address] [place], [place]. Ph. [phone] * Oumar Dorantes DDS PC. [address] [place], [place]. Ph. [phone] * Ayush Mccabe DDS. [address] [facility]. Ph. [phone] * [facility]. [address] [place], [place]. Ph. [phone] * [facility]. [address] [place] [address], [place], [place]. Ph. [phone] * [facility] [address] [place] [address]. Ph. [phone] * [facility]. [address] [place] [address] [address] [place], [place]. Ph. [phone] * [facility]. [address], [place], [place]. Ph. [phone] Sepsis Event Note - Evaluation Sepsis Screening Result: No Definite Risk - Focused Exam Vital Signs: Vital Signs Temp Pulse Resp BP Pulse Ox 05/26/19 02:35 36.2 C 76 18 118/79 98 Date Exam was Performed: 05/26/19 Time Exam was Performed: 04:30 - My Orders Last 24 Hours: My Active Orders 05/26/19 02:37 EKG 12 Lead [EKG Documentation Completion] [RC] STAT - Assessment/Plan Last 24 Hours: My Active Orders 05/26/19 02:37 EKG 12 Lead [EKG Documentation Completion] [RC] STAT
== END 2019-05-26 04:44 | disposition home or self-care (01) ==
LOC: MW.ED 02:35
DX: K52.9 Noninfective gastroenteritis and colitis, unspecified (principal); R55 Syncope and collapse; F17.210 Nicotine dependence, cigarettes, uncomplicated
CPT/HCPCS: 36415; 74177; 80053; 80305; 81003; 83690; 83735; 85025; 93005; 96361; 96374; 99284; J2405; J7030; Q9967

== ENCOUNTER 2020-01-06 15:27 | Observation (INO) | payer BC, MEDICAID, OTHER ==
[2020-01-06] MEDS ORDERED: Sodium Chloride 0.9% 2.5 ML Syringe FLUSH PRN (15:28)
[2020-01-06] MEDS ORDERED: Sodium Chloride 0.9% 10 ML Syringe FLUSH PRN (15:28)
[2020-01-06] MEDS ORDERED: fentaNYL 50 MCG/ML SDV IVPUSH ONE ×2 (15:28→18:25)
[2020-01-06] MEDS ORDERED: HYDROmorphone 1 MG/ML Syringe IVPUSH ONE (15:53)
--- NOTE | 2020-01-06 15:56 | EDM.PDOC ---
ED [facility] GENERAL MEDICAL PROBLEM - General Chief Complaint: Genitourinary Problem Stated Complaint: EMS ARRIVAL Time Seen by Provider: 01/06/20 15:28 Source of Information: Reports: Patient, Old Records History Limitations: Reports: No Limitations - History of Present Illness INITIAL COMMENTS - FREE TEXT/NARRATIVE: 39-year-old male with past medical history of methamphetamine use and IV drug use presenting with testicular pain. Brought in by ambulance from home. Patient reports the onset of mild right-sided testicular pain yesterday evening after sexual intercourse. He states that this persisted throughout the day and then became dramatically worse approximately 1 hour ago, prompting him to call the ambulance. He denies any history of trauma to the testicles. Denies any fever, penile discharge or lesions. No prior medical or surgical history. No treatment prior to arrival. ROS: A 10-point review of systems was negative, except as noted in the HPI (or in the ROS section of this note). Past medical history: Reviewed, no additional pertinent history. Surgical history: Reviewed in system, no additional pertinent history. Social history: Reviewed in system, no additional pertinent history. Family history: Reviewed in system, no additional pertinent history. PHYSICAL EXAM Vital signs reviewed. Nursing notes reviewed. Constitutional: Awake, alert, non-distressed. Head: Normocephalic, atraumatic. Eyes: EOMI, conjunctiva normal, no discharge, no scleral icterus. Ears, Nose, Throat: External ears and nose normal, moist oral mucosa. Cardiovascular: 2+ radial pulse, capillary refill less than 2 seconds. Pulmonary: normal work of breathing, no accessory muscle use. Abdomen/GI: Soft, nontender, nondistended, no guarding or rigidity, no masses. : The right testicle is elevated compared to the left and there is firmness at the inferior pole of the right testicle. The penis appears normal by external examination. Musculoskeletal: No deformities. Integumentary: Appropriate color for ethnicity, warm, dry, no pallor or jaundice, no rash. Neurologic: Alert, answering questions appropriately, normal speech, no facial droop, moving all extremities well. Psychiatric: Appropriate mood and affect, normal thought process. Scrotum Pain Score (Numeric/FACES): 10 - Related Data Allergies Allergy/AdvReac Type Severity Reaction Status Date / Time No Known Allergies Allergy Verified 01/06/20 20:27 Home Meds: Home Meds . [No Known Home Meds] 01/06/20 [History] Past Medical History HEENT History: Reports: None Cardiovascular History: Reports: None Respiratory History: Reports: None Gastrointestinal History: Reports: None Genitourinary History: Reports: None Musculoskeletal History: Reports: None Neurological History: Reports: Headaches, Chronic Psychiatric History: Reports: Anxiety, Bipolar, Depression Endocrine/Metabolic History: Reports: None Insulin Pump Model and Senior Graduate Advisor: None Hematologic History: Reports: None Immunologic History: Reports: None Oncologic (Cancer) History: Reports: None Dermatologic History: Reports: None - Infectious Disease History Infectious Disease History: Reports: Hepatitis B - Past Surgical History Head Surgeries/Procedures: Reports: None HEENT Surgical History: Reports: None Neurological Surgical History: Reports: None Social & Family History - Family History Family Medical History: Noncontributory - Caffeine Use Caffeine Use: Reports: None - Recreational Drug Use Recreational Drug Use: Yes Drug Use in Last 12 Months: Yes Recreational Drug Type: Reports: Methamphetamine Recreational Drug Use Frequency: Weekly ED ROS GENERAL - Review of Systems Review Of Systems: See Below ED EXAM, RENAL/ - Physical Exam Exam: See Below ED PROCEDURES - Additional/Other Procedure(s) Procedure(s) (Free Text): Procedure: Spermatic cord block Indication: Severe testicular pain Laterality: Right Anesthetic: Lidocaine 1% without epinephrine Volume: 5 mL Details: Alcohol swab was applied to the skin. The needle was advanced into the spermatic cord. Blood was not aspirated. Anesthetic was injected slowly while withdrawing the needle, after infiltrating the entirety of the spermatic cord and the overlying tissue. Complications: None apparent Course - Vital Signs Text/Narrative:: 39-year-old male with severe right testicle pain. Patient [hemodynamically stable, afebrile], well-appearing, looks nontoxic. Differential diagnosis includes but is not limited to: Testicular torsion, epididymitis, hydrocele, kidney stone, UTI, pyelonephritis, hematocele, hernia, orchitis, testicular rupture, tumor, etc. On arrival patient appeared to be in severe pain and localized the pain to the right testicle, which appeared high riding compared to the left and appeared to show diminished cremasteric reflex. I was initially concerned for testicular torsion so I paged the urologist for assistance with the case. 1526: Dr. Ramirez (urology) paged. 1542: Dr. Ramirez (urology) paged again. 1544: Dr. Dorantes called by phone. I advised him of my concern for testicular torsion. I requested Dr. Dorantes come to the emergency department to evaluate the patient. He requested a testicular ultrasound study which is pending. 1610: I performed a right-sided spermatic cord block with 5 mL of 1% lidocaine. instrumentation technician has arrived to perform the ultrasound study. 1740: US read as normal. Pain improved but not subsided. UA pending. To CT for abdomen/pelvis study to look for kidney stone or other etiology of patient's pain. CT abdomen/pelvis shows a small low-density lesion within the left lobe of the liver, possibly a hemangioma. Also visualized a small 2 mm obstructing stone within the distal right ureter of the right kidney. Urinalysis shows large occult blood, trace leukocyte esterase, 40 ketones. Pain is not well controlled, ordered additional fentanyl. Given Zofran for nausea. Urinalysis appears to show possible evidence of infection. Ordered p.o. cephalexin. Given refractory pain, patient will need to be admitted to hospital on observation status for ongoing symptom control of pain and nausea. I spoke with the hospitalist who agrees to admit to observation. Last Recorded V/S: Last Vital Signs Temp 36.6 C 01/07/20 04:32 Pulse 73 01/07/20 04:32 Resp 17 01/07/20 04:32 BP 110/59 L 01/07/20 04:32 Pulse Ox 99 01/07/20 04:32 - Orders/Labs/Meds Orders: Active Orders 24 hr Category Date Time Status Admission Status [Patient Status] [ADT] Stat ADT 01/06/20 18:47 Active Cardiac Monitoring [RC] . DIRECTED Care 01/06/20 15:28 Active Pulse Oximetry [RC] ASDIRECTED Care 01/06/20 15:28 Active CULTURE URINE [RM] Stat Lab 01/06/20 17:34 Received Sodium Chloride 0.9% [Saline Flush] Med 01/06/20 15:28 Active 10 ml FLUSH ASDIRECTED PRN Sodium Chloride 0.9% [Saline Flush] Med 01/06/20 15:28 Active 2.5 ml FLUSH ASDIRECTED PRN Saline Lock Insert [OM.PC] Stat Oth 01/06/20 15:28 Ordered Medication Orders Acetaminophen (Tylenol) 650 mg PO Q4H PRN PRN Reason: Pain/Fever Enoxaparin Sodium (Lovenox) 40 mg SUBCUT Q24H [facility] Last Admin: 01/06/20 20:48 Dose: 40 mg Documented by: EDISON Hydromorphone HCl (Dilaudid) 0.5 mg IVPUSH Q2H PRN PRN Reason: Pain Sodium Chloride (Normal Saline) 1,000 mls @ 200 mls/hr IV ASDIRECTED [facility] Last Admin: 01/07/20 02:37 Dose: 200 mls/hr Documented by: Infusion: 01/07/20 01:49 Dose: 200 mls/hr Documented by: Admin: 01/06/20 20:49 Dose: 200 mls/hr Documented by: EDISON Ceftriaxone Sodium/Dextrose 1 (gm/ Premix) 50 mls @ 100 mls/hr IV Q24H [facility] Last Admin: 01/06/20 21:24 Dose: 100 mls/hr Documented by: EDISON Ondansetron HCl (Zofran) 4 mg IVPUSH Q4H PRN PRN Reason: Nausea/Vomiting Pantoprazole Sodium (Protonix) 40 mg PO ACBREAKFAST [facility] Last Admin: 01/07/20 08:28 Dose: 40 mg Documented by: [id number] Sodium Chloride (Saline Flush) 10 ml FLUSH ASDIRECTED PRN PRN Reason: Keep Vein Open Last Admin: 01/06/20 15:34 Dose: 10 ml Documented by: MARGRETDNIC Sodium Chloride (Saline Flush) 2.5 ml FLUSH ASDIRECTED PRN PRN Reason: Keep Vein Open Last Admin: 01/06/20 15:34 Dose: 2.5 ml Documented by: MARGRETDNRAYMON Tamsulosin HCl (Flomax) 0.4 mg PO DAILY [facility] Last Admin: 01/07/20 08:28 Dose: 0.4 mg Documented by: Admin: 01/06/20 20:48 Dose: 0.4 mg Documented by: EDISON Labs: Laboratory Tests 01/06/20 01/06/20 01/06/20 Range/Units 15:30 15:30 15:30 WBC 9.22 (4.0-11.0) K/uL RBC 4.95 (4.50-5.90) M/uL Hgb 15.9 (13.0-17.0) g/dL Hct 45.0 (38.0-50.0) % MCV 90.9 (80.0-98.0) fL MCH 32.1 H (27.0-32.0) pg MCHC 35.3 (31.0-37.0) g/dL RDW Std Deviation 41.2 (28.0-62.0) fl RDW Coeff of Michele 12 (11.0-15.0) % Plt Count 313 (150-400) K/uL MPV 9.90 (7.40-12.00) fL Neut % (Auto) 49.5 (48.0-80.0) % Lymph % (Auto) 34.4 (16.0-40.0) % Spencer % (Auto) 12.8 (0.0-15.0) % Eos % (Auto) 2.5 (0.0-7.0) % Baso % (Auto) 0.8 (0.0-1.5) % Neut # (Auto) 4.6 (1.4-5.7) K/uL Lymph # (Auto) 3.2 H (0.6-2.4) K/uL Spencer # (Auto) 1.2 H (0.0-0.8) K/uL Eos # (Auto) 0.2 (0.0-0.7) K/uL Baso # (Auto) 0.1 (0.0-0.1) K/uL Nucleated RBC % 0.0 /100WBC Nucleated RBCs # 0 K/uL INR 1.02 Lactate 3.0 H* (0.20-2.00) mmol/L Sodium (136-148) mmol/L Potassium (3.5-5.1) mmol/L Chloride (98-107) mmol/L Carbon Dioxide (21.0-32.0) mmol/L BUN (7.0-18.0) mg/dL Creatinine (0.8-1.3) mg/dL Est Cr Clr Drug Dosing mL/min Estimated GFR (MDRD) ml/min Glucose (74-106) mg/dL Calcium (8.5-10.1) mg/dL Total Bilirubin (0.2-1.0) mg/dL AST (15-37) IU/L ALT (14-63) IU/L Alkaline Phosphatase (46-116) U/L Total Protein (6.4-8.2) g/dL Albumin (3.4-5.0) g/dL Globulin (2.6-4.0) g/dL Albumin/Globulin Ratio (0.9-1.6) Urine Color Urine Appearance Urine pH (5.0-8.0) Ur Specific Wood[place] (1.001-1.035) Urine Protein (NEGATIVE) mg/dL Urine Glucose (UA) (NEGATIVE) mg/dL Urine Ketones (NEGATIVE) mg/dL Urine Occult Blood (NEGATIVE) Urine Nitrite (NEGATIVE) Urine Bilirubin (NEGATIVE) Urine Ictotest Urine Urobilinogen (<2.0) EU/dL Ur Leukocyte Esterase (NEGATIVE) Urine RBC (0-2/HPF) Urine WBC (0-5/HPF) Ur Epithelial Cells (NONE-FEW) Urine Bacteria (NEGATIVE) SARS-CoV-2 RNA (DEZ) (NEGATIVE) SARS CoV-2 RNA Rapid DEZ (NEGATIVE) 01/06/20 01/06/20 01/06/20 Range/Units 15:30 16:05 16:05 WBC (4.0-11.0) K/uL RBC (4.50-5.90) M/uL Hgb (13.0-17.0) g/dL Hct (38.0-50.0) % MCV (80.0-98.0) fL MCH (27.0-32.0) pg MCHC (31.0-37.0) g/dL RDW Std Deviation (28.0-62.0) fl RDW Coeff of Michele (11.0-15.0) % Plt Count (150-400) K/uL MPV (7.40-12.00) fL Neut % (Auto) (48.0-80.0) % Lymph % (Auto) (16.0-40.0) % Spencer % (Auto) (0.0-15.0) % Eos % (Auto) (0.0-7.0) % Baso % (Auto) (0.0-1.5) % Neut # (Auto) (1.4-5.7) K/uL Lymph # (Auto) (0.6-2.4) K/uL Spencer # (Auto) (0.0-0.8) K/uL Eos # (Auto) (0.0-0.7) K/uL Baso # (Auto) (0.0-0.1) K/uL Nucleated RBC % /100WBC Nucleated RBCs # K/uL INR Lactate (0.20-2.00) mmol/L Sodium 138 (136-148) mmol/L Potassium 3.6 (3.5-5.1) mmol/L Chloride 102 (98-107) mmol/L Carbon Dioxide 20.7 L (21.0-32.0) mmol/L BUN 10 (7.0-18.0) mg/dL Creatinine 1.0 (0.8-1.3) mg/dL Est Cr Clr Drug Dosing 81.90 mL/min Estimated GFR (MDRD) > 60.0 ml/min Glucose 94 (74-106) mg/dL Calcium 9.4 (8.5-10.1) mg/dL Total Bilirubin 1.0 (0.2-1.0) mg/dL AST 109 H (15-37) IU/L ALT 154 H (14-63) IU/L Alkaline Phosphatase 93 (46-116) U/L Total Protein 7.8 (6.4-8.2) g/dL Albumin 4.0 (3.4-5.0) g/dL Globulin 3.8 (2.6-4.0) g/dL Albumin/Globulin Ratio 1.1 (0.9-1.6) Urine Color Urine Appearance Urine pH (5.0-8.0) Ur Specific [place] (1.001-1.035) Urine Protein (NEGATIVE) mg/dL Urine Glucose (UA) (NEGATIVE) mg/dL Urine Ketones (NEGATIVE) mg/dL Urine Occult Blood (NEGATIVE) Urine Nitrite (NEGATIVE) Urine Bilirubin (NEGATIVE) Urine Ictotest Urine Urobilinogen (<2.0) EU/dL Ur Leukocyte Esterase (NEGATIVE) Urine RBC (0-2/HPF) Urine WBC (0-5/HPF) Ur Epithelial Cells (NONE-FEW) Urine Bacteria (NEGATIVE) SARS-CoV-2 RNA (DEZ) NEGATIVE (NEGATIVE) SARS CoV-2 RNA Rapid DEZ NEGATIVE (NEGATIVE) 01/06/20 Range/Units 17:38 WBC (4.0-11.0) K/uL RBC (4.50-5.90) M/uL Hgb (13.0-17.0) g/dL Hct (38.0-50.0) % MCV (80.0-98.0) fL MCH (27.0-32.0) pg MCHC (31.0-37.0) g/dL RDW Std Deviation (28.0-62.0) fl RDW Coeff of Michele (11.0-15.0) % Plt Count (150-400) K/uL MPV (7.40-12.00) fL Neut % (Auto) (48.0-80.0) % Lymph % (Auto) (16.0-40.0) % Spencer % (Auto) (0.0-15.0) % Eos % (Auto) (0.0-7.0) % Baso % (Auto) (0.0-1.5) % Neut # (Auto) (1.4-5.7) K/uL Lymph # (Auto) (0.6-2.4) K/uL Spencer # (Auto) (0.0-0.8) K/uL Eos # (Auto) (0.0-0.7) K/uL Baso # (Auto) (0.0-0.1) K/uL Nucleated RBC % /100WBC Nucleated RBCs # K/uL INR Lactate (0.20-2.00) mmol/L Sodium (136-148) mmol/L Potassium (3.5-5.1) mmol/L Chloride (98-107) mmol/L Carbon Dioxide (21.0-32.0) mmol/L BUN (7.0-18.0) mg/dL Creatinine (0.8-1.3) mg/dL Est Cr Clr Drug Dosing mL/min Estimated GFR (MDRD) ml/min Glucose (74-106) mg/dL Calcium (8.5-10.1) mg/dL Total Bilirubin (0.2-1.0) mg/dL AST (15-37) IU/L ALT (14-63) IU/L Alkaline Phosphatase (46-116) U/L Total Protein (6.4-8.2) g/dL Albumin (3.4-5.0) g/dL Globulin (2.6-4.0) g/dL Albumin/Globulin Ratio (0.9-1.6) Urine Color BROWN Urine Appearance CLOUDY Urine pH 8.5 H (5.0-8.0) Ur Specific [place] 1.015 (1.001-1.035) Urine Protein 30 H (NEGATIVE) mg/dL Urine Glucose (UA) NEGATIVE (NEGATIVE) mg/dL Urine Ketones 40 H (NEGATIVE) mg/dL Urine Occult Blood LARGE H (NEGATIVE) Urine Nitrite NEGATIVE (NEGATIVE) Urine Bilirubin SMALL H (NEGATIVE) Urine Ictotest NEGATIVE Urine Urobilinogen 4.0 H (<2.0) EU/dL Ur Leukocyte Esterase TRACE H (NEGATIVE) Urine RBC TOO NUMEROUS TO CT (0-2/HPF) Urine WBC 1-2 (0-5/HPF) Ur Epithelial Cells RARE (NONE-FEW) Urine Bacteria FEW (NEGATIVE) SARS-CoV-2 RNA (DEZ) (NEGATIVE) SARS CoV-2 RNA Rapid DEZ (NEGATIVE) Meds: Medications Generic Name Dose Route Start Last Admin Trade Name Freq PRN Reason Stop Dose Admin Acetaminophen 650 mg 01/06/20 19:46 Tylenol PO Q4H PRN Pain/Fever Enoxaparin Sodium 40 mg 01/06/20 20:00 01/06/20 20:48 Lovenox SUBCUT 40 mg Q24H IJEOMA Administration Hydromorphone HCl 0.5 mg 01/06/20 20:04 Dilaudid IVPUSH Q2H PRN Pain Sodium Chloride 1,000 mls @ 200 mls/hr 01/06/20 19:45 01/07/20 02:37 Normal Saline IV 200 mls/hr ASDIRECTED IJEOMA Administration Ceftriaxone Sodium/Dextrose 1 50 mls @ 100 mls/hr 01/06/20 21:00 01/06/20 21:24 gm/ Premix IV 100 mls/hr Q24H IJEOMA Administration Ondansetron HCl 4 mg 01/06/20 19:45 Zofran IVPUSH Q4H PRN Nausea/Vomiting Pantoprazole Sodium 40 mg 01/07/20 07:30 01/07/20 08:28 Protonix PO 40 mg ACBREAKFAST IJEOMA Administration Sodium Chloride 10 ml 01/06/20 15:28 01/06/20 15:34 Saline Flush FLUSH 10 ml ASDIRECTED PRN Administration Keep Vein Open Sodium Chloride 2.5 ml 01/06/20 15:28 01/06/20 15:34 Saline Flush FLUSH 2.5 ml ASDIRECTED PRN Administration Keep Vein Open Tamsulosin HCl 0.4 mg 01/06/20 21:00 01/07/20 08:28 Flomax PO 0.4 mg DAILY IJEOMA Administration Discontinued Medications Generic Name Dose Route Start Last Admin Trade Name Freq PRN Reason Stop Dose Admin Cephalexin 500 mg 01/06/20 18:26 01/06/20 18:45 Keflex PO 01/06/20 18:27 500 mg ONETIME ONE Administration Fentanyl 75 mcg 01/06/20 15:28 01/06/20 15:45 Fentanyl IVPUSH 01/06/20 15:29 75 mcg ONETIME ONE Administration Fentanyl 75 mcg 01/06/20 18:25 01/06/20 18:44 Fentanyl IVPUSH 01/06/20 18:26 75 mcg ONETIME ONE Administration Hydromorphone HCl 1 mg 01/06/20 15:53 01/06/20 15:56 Dilaudid IVPUSH 01/06/20 15:54 1 mg ONETIME ONE Administration Lactated Ringer's 1,000 mls @ 999 mls/hr 01/06/20 15:57 01/06/20 15:59 Ringers, Lactated IV 01/06/20 16:57 999 mls/hr .BOLUS ONE Administration Ceftriaxone Sodium 1 gm/ 50 mls @ 100 mls/hr 01/06/20 20:00 01/06/20 21:17 Sodium Chloride IV Not Given Q24H IJEOMA Iopamidol 100 ml 01/06/20 18:18 01/06/20 18:19 Isovue Multipack-370 (76%) IVPUSH 01/06/20 18:19 100 ml ONETIME STA Administration Lidocaine HCl 10 ml 01/06/20 15:31 01/06/20 15:34 Xylocaine-Mpf 1% INJECT 01/06/20 15:32 10 ml ONETIME ONE Administration Ondansetron HCl 4 mg 01/06/20 16:41 01/06/20 16:47 Zofran IVPUSH 01/06/20 16:42 4 mg ONETIME ONE Administration Departure - Departure Time of Disposition: 18:31 Disposition: Refer to Observation Condition: Good Clinical Impression: Kidney stone on right side, Intractable pain - Discharge Information Sepsis Event Note (ED) - Evaluation Sepsis Screening Result: No Definite Risk - My Orders Last 24 Hours: My Active Orders 01/06/20 15:28 Cardiac Monitoring [RC] . DIRECTED Pulse Oximetry [RC] ASDIRECTED Sodium Chloride 0.9% [Saline Flush] 10 ml FLUSH ASDIRECTED PRN Sodium Chloride 0.9% [Saline Flush] 2.5 ml FLUSH ASDIRECTED PRN Saline Lock Insert [OM.PC] Stat 01/06/20 17:34 CULTURE URINE [RM] Stat 01/06/20 18:47 Admission Status [Patient Status] [ADT] Stat - Assessment/Plan Last 24 Hours: My Active Orders 01/06/20 15:28 Cardiac Monitoring [RC] . DIRECTED Pulse Oximetry [RC] ASDIRECTED Sodium Chloride 0.9% [Saline Flush] 10 ml FLUSH ASDIRECTED PRN Sodium Chloride 0.9% [Saline Flush] 2.5 ml FLUSH ASDIRECTED PRN Saline Lock Insert [OM.PC] Stat 01/06/20 17:34 CULTURE URINE [RM] Stat 01/06/20 18:47 Admission Status [Patient Status] [ADT] Stat
[2020-01-06] MEDS ORDERED: Lactated Ringers 1,000 ML IV ONE (15:57)
[2020-01-06 16:11] LABS: BLOOD UREA NITROGEN,BUN 10 mg/dL (7.0-18.0); CARBON DIOXIDE,CO2 20.7 mmol/L (21.0-32.0); CHLORIDE,CL 102 mmol/L (98-107); GLUCOSE RANDOM 94 mg/dL (74-106); POTASSIUM,K 3.6 mmol/L (3.5-5.1); SODIUM,NA 138 mmol/L (136-148)
[2020-01-06] MEDS ORDERED: Ondansetron 4 MG/2 ML SDV IVPUSH ONE (16:41)
--- NOTE | 2020-01-06 17:23 | US ---
Testicular ultrasound: Multiple real-time images of the testicles were obtained. Comparison: No previous testicular imaging is available. Testicles have a homogeneous ultrasound appearance. No intratesticular abnormality is seen. Both arterial and venous blood flow are seen within the testicles. No significant hydrocele is seen. Epididymides appear within normal limits. Measurements: Right testicle: 4.3 x 1.8 x 2.7 cm Left testicle: 3.4 x 1.6 x 2.6 cm Impression: 1. No abnormality is appreciated on testicular ultrasound study. Diagnostic code #1 This report was dictated in MDT
[2020-01-06] MEDS ORDERED: Iopamidol 755 MG/ML 500 ML Multipack Bottle IVPUSH STA (18:18)
--- NOTE | 2020-01-06 18:18 | CT ---
CT abdomen and pelvis Technique: Multiple axial sections were obtained from above the dome of the diaphragm inferiorly through the pubic symphysis. Intravenous contrast was utilized. No oral contrast has been given. Findings: Visualized lung bases show nothing acute. Low density lesion noted within the left lobe of the liver measuring 1.1 cm in size. This does not appear as a cyst and could represent a small hemangioma. No additional abnormality is seen within the liver. Spleen appears within normal limits. Adrenal glands show no nodule. Pancreas shows no discrete abnormality. Kidneys show asymmetric contrast enhancement with diminished perfusion on the right side as compared to the left side. This finding is caused by a small obstructing stone within the distal right ureter measuring approximately 2 mm which is close to the UVJ. This causes proximal ureteral dilatation. Cyst is noted within the upper left kidney measuring approximately 1.0 cm. Gallbladder contains no calcified gallstones. Pancreas is normal. Aorta shows atherosclerotic calcification without aneurysm. No retroperitoneal adenopathy or mesenteric abnormalities are seen. No pelvic mass is seen. No free fluid or inflammatory change is identified. Appendix not definitely visualized. Bone window settings were reviewed which shows no acute osseous finding. Impression: 1. Asymmetric enhancement of the kidneys, diminished on the right side. Right ureter is dilated. These findings are caused by a small 2 mm obstructing stone within the distal right ureter. 2. Small cyst within the left kidney. 3. Small low density lesion within the left lobe of the liver not representing a cyst and possibly due to small hemangioma. Diagnostic code #3 This report was dictated in MDT
[2020-01-06] MEDS ORDERED: Cephalexin 500 MG Cap PO ONE (18:26)
--- NOTE | 2020-01-06 19:17 | PCM.HP.2 ---
<Connor Clemons - Last Filed: 01/06/20 19:41> H&P History of Present Illness - General Date of Service: 01/06/20 Admit Problem/Dx: Admission Diagnosis/Problem Admission Diagnosis/Problem Kidney stone Source of Information: Patient History Limitations: Reports: No Limitations - History of Present Illness Initial Comments - Free Text/Narative: 39-year-old male admitted for pain due to a 2mm kidney stone. Patient states that he started top have right sided testicular/abdominal pain yesterday evening and his pain became increasingly worse this afternoon. Patient brought in to the ED via ambulance. Patient denies any trauma to his testicles, right flank or abdominal area. Patient states nothing makes the pain better and movement makes the pain worse. Denies fever, chills, dysuria, hematuria. Denies previous history of kidney stones. Patient has a history of methamphetamine abuse, 1/2 PPD smoker and alcohol usage. In the ED testicular ultrasound performed which showed no testicular torsion. CT abdomen/pelvis shows a small low-density lesion within the left lobe of the liver, possibly a hemangioma. Also visualized a small 2 mm obstructing stone within the distal right ureter of the right kidney. Urinalysis shows large occult blood, trace leukocyte esterase, 40 ketones. Urinalysis appears to show possible evidence of infection: given 500 mg of cephalexin, IV fluid bolus also provided Scrotum Pain Score (Numeric/FACES): 10 - Related Data Allergies/Adverse Reactions: Allergies Allergy/AdvReac Type Severity Reaction Status Date / Time No Known Allergies Allergy Verified 01/06/20 20:27 Home Medications: Home Meds levoFLOXacin [Levaquin] 750 mg PO DAILY 5 Days #5 tablet 01/07/20 [Rx] Past Medical History HEENT History: Reports: None Cardiovascular History: Reports: None Respiratory History: Reports: None Gastrointestinal History: Reports: None Genitourinary History: Reports: None Musculoskeletal History: Reports: None Neurological History: Reports: Headaches, Chronic Psychiatric History: Reports: Anxiety, Bipolar, Depression Endocrine/Metabolic History: Reports: None Insulin Pump Model and Procurement Clerk: None Hematologic History: Reports: None Immunologic History: Reports: None Oncologic (Cancer) History: Reports: None Dermatologic History: Reports: None - Infectious Disease History Infectious Disease History: Reports: Hepatitis B - Past Surgical History Head Surgeries/Procedures: Reports: None HEENT Surgical History: Reports: None Neurological Surgical History: Reports: None Social & Family History - Family History Family Medical History: Noncontributory - Caffeine Use Caffeine Use: Reports: None - Recreational Drug Use Recreational Drug Use: Yes Drug Use in Last 12 Months: Yes Recreational Drug Type: Reports: Methamphetamine Recreational Drug Use Frequency: Weekly H&P Review of Systems - Review of Systems: Review Of Systems: See Below General: Denies: Fever, Chills, Night Sweats HEENT: Reports: No Symptoms Pulmonary: Denies: Shortness of Breath, Wheezing, Pleuritic Chest Pain Cardiovascular: Denies: Chest Pain, Palpitations, Dyspnea on Exertion Gastrointestinal: Reports: Abdominal Pain (right sided). Denies: Nausea, Vomiting Genitourinary: Reports: Flank Pain (right side). Denies: Dysuria, Frequency, Burning, Discharge Neurological: Denies: Confusion, Dizziness Exam - Exam Exam: See Below - Vital Signs Vital Signs: Last Vital Signs Temp 96.5 F L 01/06/20 18:45 Pulse 73 01/06/20 18:45 Resp 18 01/06/20 18:45 BP 117/78 01/06/20 18:45 Pulse Ox 98 01/06/20 18:45 Weight: 58.967 kg - Exam Quality Assessment: No: Supplemental Oxygen General: Alert, Oriented HEENT: EOMI Neck: Supple, Trachea Midline Lungs: Clear to Auscultation, Normal Respiratory Effort Cardiovascular: Regular Rate, Regular Rhythm GI/Abdominal Exam: Soft, Non-Tender, Tender (RLQ) Back Exam: CVA Tenderness (R) Extremities: Normal Inspection, Normal Range of Motion, No Pedal Edema Skin: Warm Neuro Extensive - Mental Status: Alert, Oriented x3, Normal Mood/Affect - Patient Data Lab Results Last 24 hrs: Laboratory Results - last 24 hr 01/06/20 01/06/20 01/06/20 Range/Units 15:30 15:30 15:30 WBC 9.22 (4.0-11.0) K/uL RBC 4.95 (4.50-5.90) M/uL Hgb 15.9 (13.0-17.0) g/dL Hct 45.0 (38.0-50.0) % MCV 90.9 (80.0-98.0) fL MCH 32.1 H (27.0-32.0) pg MCHC 35.3 (31.0-37.0) g/dL RDW Std Deviation 41.2 (28.0-62.0) fl RDW Coeff of Michele 12 (11.0-15.0) % Plt Count 313 (150-400) K/uL MPV 9.90 (7.40-12.00) fL Neut % (Auto) 49.5 (48.0-80.0) % Lymph % (Auto) 34.4 (16.0-40.0) % Burt % (Auto) 12.8 (0.0-15.0) % Eos % (Auto) 2.5 (0.0-7.0) % Baso % (Auto) 0.8 (0.0-1.5) % Neut # (Auto) 4.6 (1.4-5.7) K/uL Lymph # (Auto) 3.2 H (0.6-2.4) K/uL Burt # (Auto) 1.2 H (0.0-0.8) K/uL Eos # (Auto) 0.2 (0.0-0.7) K/uL Baso # (Auto) 0.1 (0.0-0.1) K/uL Nucleated RBC % 0.0 /100WBC Nucleated RBCs # 0 K/uL INR 1.02 Lactate 3.0 H* (0.20-2.00) mmol/L Sodium (136-148) mmol/L Potassium (3.5-5.1) mmol/L Chloride (98-107) mmol/L Carbon Dioxide (21.0-32.0) mmol/L BUN (7.0-18.0) mg/dL Creatinine (0.8-1.3) mg/dL Est Cr Clr Drug Dosing mL/min Estimated GFR (MDRD) ml/min Glucose (74-106) mg/dL Calcium (8.5-10.1) mg/dL Total Bilirubin (0.2-1.0) mg/dL AST (15-37) IU/L ALT (14-63) IU/L Alkaline Phosphatase (46-116) U/L Total Protein (6.4-8.2) g/dL Albumin (3.4-5.0) g/dL Globulin (2.6-4.0) g/dL Albumin/Globulin Ratio (0.9-1.6) Urine Color Urine Appearance Urine pH (5.0-8.0) Ur Specific [place] (1.001-1.035) Urine Protein (NEGATIVE) mg/dL Urine Glucose (UA) (NEGATIVE) mg/dL Urine Ketones (NEGATIVE) mg/dL Urine Occult Blood (NEGATIVE) Urine Nitrite (NEGATIVE) Urine Bilirubin (NEGATIVE) Urine Ictotest Urine Urobilinogen (<2.0) EU/dL Ur Leukocyte Esterase (NEGATIVE) Urine RBC (0-2/HPF) Urine WBC (0-5/HPF) Ur Epithelial Cells (NONE-FEW) Urine Bacteria (NEGATIVE) SARS-CoV-2 RNA (DEZ) (NEGATIVE) SARS CoV-2 RNA Rapid DEZ (NEGATIVE) 01/06/20 01/06/20 01/06/20 Range/Units 15:30 16:05 16:05 WBC (4.0-11.0) K/uL RBC (4.50-5.90) M/uL Hgb (13.0-17.0) g/dL Hct (38.0-50.0) % MCV (80.0-98.0) fL MCH (27.0-32.0) pg MCHC (31.0-37.0) g/dL RDW Std Deviation (28.0-62.0) fl RDW Coeff of Michele (11.0-15.0) % Plt Count (150-400) K/uL MPV (7.40-12.00) fL Neut % (Auto) (48.0-80.0) % Lymph % (Auto) (16.0-40.0) % Burt % (Auto) (0.0-15.0) % Eos % (Auto) (0.0-7.0) % Baso % (Auto) (0.0-1.5) % Neut # (Auto) (1.4-5.7) K/uL Lymph # (Auto) (0.6-2.4) K/uL Burt # (Auto) (0.0-0.8) K/uL Eos # (Auto) (0.0-0.7) K/uL Baso # (Auto) (0.0-0.1) K/uL Nucleated RBC % /100WBC Nucleated RBCs # K/uL INR Lactate (0.20-2.00) mmol/L Sodium 138 (136-148) mmol/L Potassium 3.6 (3.5-5.1) mmol/L Chloride 102 (98-107) mmol/L Carbon Dioxide 20.7 L (21.0-32.0) mmol/L BUN 10 (7.0-18.0) mg/dL Creatinine 1.0 (0.8-1.3) mg/dL Est Cr Clr Drug Dosing 81.90 mL/min Estimated GFR (MDRD) > 60.0 ml/min Glucose 94 (74-106) mg/dL Calcium 9.4 (8.5-10.1) mg/dL Total Bilirubin 1.0 (0.2-1.0) mg/dL AST 109 H (15-37) IU/L ALT 154 H (14-63) IU/L Alkaline Phosphatase 93 (46-116) U/L Total Protein 7.8 (6.4-8.2) g/dL Albumin 4.0 (3.4-5.0) g/dL Globulin 3.8 (2.6-4.0) g/dL Albumin/Globulin Ratio 1.1 (0.9-1.6) Urine Color Urine Appearance Urine pH (5.0-8.0) Ur Specific [place] (1.001-1.035) Urine Protein (NEGATIVE) mg/dL Urine Glucose (UA) (NEGATIVE) mg/dL Urine Ketones (NEGATIVE) mg/dL Urine Occult Blood (NEGATIVE) Urine Nitrite (NEGATIVE) Urine Bilirubin (NEGATIVE) Urine Ictotest Urine Urobilinogen (<2.0) EU/dL Ur Leukocyte Esterase (NEGATIVE) Urine RBC (0-2/HPF) Urine WBC (0-5/HPF) Ur Epithelial Cells (NONE-FEW) Urine Bacteria (NEGATIVE) SARS-CoV-2 RNA (DEZ) NEGATIVE (NEGATIVE) SARS CoV-2 RNA Rapid DEZ NEGATIVE (NEGATIVE) 01/06/20 01/06/20 Range/Units 17:38 18:50 WBC (4.0-11.0) K/uL RBC (4.50-5.90) M/uL Hgb (13.0-17.0) g/dL Hct (38.0-50.0) % MCV (80.0-98.0) fL MCH (27.0-32.0) pg MCHC (31.0-37.0) g/dL RDW Std Deviation (28.0-62.0) fl RDW Coeff of Michele (11.0-15.0) % Plt Count (150-400) K/uL MPV (7.40-12.00) fL Neut % (Auto) (48.0-80.0) % Lymph % (Auto) (16.0-40.0) % Burt % (Auto) (0.0-15.0) % Eos % (Auto) (0.0-7.0) % Baso % (Auto) (0.0-1.5) % Neut # (Auto) (1.4-5.7) K/uL Lymph # (Auto) (0.6-2.4) K/uL Burt # (Auto) (0.0-0.8) K/uL Eos # (Auto) (0.0-0.7) K/uL Baso # (Auto) (0.0-0.1) K/uL Nucleated RBC % /100WBC Nucleated RBCs # K/uL INR Lactate 1.5 (0.20-2.00) mmol/L Sodium (136-148) mmol/L Potassium (3.5-5.1) mmol/L Chloride (98-107) mmol/L Carbon Dioxide (21.0-32.0) mmol/L BUN (7.0-18.0) mg/dL Creatinine (0.8-1.3) mg/dL Est Cr Clr Drug Dosing mL/min Estimated GFR (MDRD) ml/min Glucose (74-106) mg/dL Calcium (8.5-10.1) mg/dL Total Bilirubin (0.2-1.0) mg/dL AST (15-37) IU/L ALT (14-63) IU/L Alkaline Phosphatase (46-116) U/L Total Protein (6.4-8.2) g/dL Albumin (3.4-5.0) g/dL Globulin (2.6-4.0) g/dL Albumin/Globulin Ratio (0.9-1.6) Urine Color BROWN Urine Appearance CLOUDY Urine pH 8.5 H (5.0-8.0) Ur Specific [place] 1.015 (1.001-1.035) Urine Protein 30 H (NEGATIVE) mg/dL Urine Glucose (UA) NEGATIVE (NEGATIVE) mg/dL Urine Ketones 40 H (NEGATIVE) mg/dL Urine Occult Blood LARGE H (NEGATIVE) Urine Nitrite NEGATIVE (NEGATIVE) Urine Bilirubin SMALL H (NEGATIVE) Urine Ictotest NEGATIVE Urine Urobilinogen 4.0 H (<2.0) EU/dL Ur Leukocyte Esterase TRACE H (NEGATIVE) Urine RBC TOO NUMEROUS TO CT (0-2/HPF) Urine WBC 1-2 (0-5/HPF) Ur Epithelial Cells RARE (NONE-FEW) Urine Bacteria FEW (NEGATIVE) SARS-CoV-2 RNA (DEZ) (NEGATIVE) SARS CoV-2 RNA Rapid DEZ (NEGATIVE) Result Diagrams: 01/06/20 15:30 01/06/20 15:30 Sepsis Event Note - Evaluation Sepsis Screening Result: No Definite Risk - Focused Exam Vital Signs: Vital Signs Temp Pulse Resp BP Pulse Ox 01/06/20 18:45 96.5 F L 73 18 117/78 98 01/06/20 16:42 81 129/93 H 100 01/06/20 16:27 67 131/93 H 100 01/06/20 16:12 68 20 122/92 H 99 01/06/20 15:57 64 123/85 99 01/06/20 15:37 96.7 F L 97 20 127/84 98 Problem List Initiated/Reviewed/Updated: Yes Orders Last 24hrs: Active Orders 24 hr Category Date Time Status Admission Status [Patient Status] [ADT] Stat ADT 01/06/20 18:47 Active Cardiac Monitoring [RC] . DIRECTED Care 01/06/20 15:28 Active Pulse Oximetry [RC] ASDIRECTED Care 01/06/20 15:28 Active Nothing Per Oral Diet [DIET] Diet 01/06/20 Lunch Active Scrotal Duplex Ltd [US] Routine Exams 01/06/20 Taken CULTURE URINE [RM] Stat Lab 01/06/20 17:34 Received Sodium Chloride 0.9% [Saline Flush] Med 01/06/20 15:28 Active 10 ml FLUSH ASDIRECTED PRN Sodium Chloride 0.9% [Saline Flush] Med 01/06/20 15:28 Active 2.5 ml FLUSH ASDIRECTED PRN Saline Lock Insert [OM.PC] Stat Oth 01/06/20 15:28 Ordered Medication Orders Sodium Chloride (Saline Flush) 10 ml FLUSH ASDIRECTED PRN PRN Reason: Keep Vein Open Last Admin: 01/06/20 15:34 Dose: 10 ml Documented by: MERVIN Sodium Chloride (Saline Flush) 2.5 ml FLUSH ASDIRECTED PRN PRN Reason: Keep Vein Open Last Admin: 01/06/20 15:34 Dose: 2.5 ml Documented by: MERVIN Assessment/Plan Comment:: Assessment/Plan: Nephrolithiasis- 2 mm obstructing stone. UA positive for blood. IV Rocephin 1g Q24HR, will adjust pending cultures. UC ordered from ED. Lactate resolved since fluid bolus, pain control: Dilaudid 0.5 mg q 2 hrs for pain + tylenol 650mg Q4hr PRN, Flomax 0.4mg to aid in urethral propulsion of stone, Strain urine for stone, IV fluids NS 200 m/hr, Zofran 4mg Q4hr prn, for Nausea, NPO till AM. Intractable N/V+pain secondary to above- Dilaudid 0.5 mg q 2 hrs for pain + Tylenol 650mg Q4hr PRN, Zofran 4mg Q4hr prn Transaminitis- Monitor am CMP. Patient does have a history of alcohol and drug use. <Kenneth Meyer - Last Filed: 01/08/20 13:18> H&P History of Present Illness - General Admit Problem/Dx: Admission Diagnosis/Problem Admission Diagnosis/Problem Kidney stone - History of Present Illness Initial Comments - Free Text/Narative: I performed a history and physical exam of the patient and discussed management with resident. I have reviewed the residents note and agree with documented findings and plan unless otherwise specified in my note. Exam - Vital Signs Vital Signs: Last Vital Signs Temp 37.1 C 01/07/20 12:00 Pulse 75 01/07/20 12:00 Resp 18 01/07/20 12:00 BP 107/62 01/07/20 12:00 Pulse Ox 98 01/07/20 12:00 - Patient Data Result Diagrams: 01/07/20 05:13 01/07/20 05:13 Toan Results Last 24 hrs: Microbiology 01/06/20 17:34 Urine Culture - Final Urine, Voided MIXED MAYLIN >100,000 CFU/ML
[2020-01-06] MEDS ORDERED: Ondansetron 4 MG/2 ML SDV IVPUSH PRN (19:45)
[2020-01-06] MEDS ORDERED: Acetaminophen 325 MG Tab PO PRN (19:46)
[2020-01-06] MEDS ORDERED: cefTRIAXone 1 GM in Sodium Chloride 0.9% 50 ML IV SCH (20:00)
[2020-01-06] MEDS ORDERED: Enoxaparin 40 MG/0.4 ML Syringe SUBCUT SCH (20:00)
[2020-01-06] MEDS ORDERED: HYDROmorphone 1 MG/ML Syringe IVPUSH PRN (20:04)
[2020-01-06] MEDS: Tamsulosin 0.4 MG Cap.ER PO SCH (20:48)
[2020-01-06] MEDS: Sodium Chloride 0.9% 1,000 ML IV SCH (20:49)
[2020-01-06] MEDS ORDERED: cefTRIAXone 1 GM in Premix Bag 1 BAG IV SCH (21:00)
[2020-01-07] MEDS: Sodium Chloride 0.9% 1,000 ML IV SCH (02:37)
[2020-01-07 06:54] LABS: BLOOD UREA NITROGEN,BUN 8 mg/dL (7.0-18.0); CARBON DIOXIDE,CO2 23.8 mmol/L (21.0-32.0); CHLORIDE,CL 105 mmol/L (98-107); GLUCOSE RANDOM 77 mg/dL (74-106); POTASSIUM,K 3.8 mmol/L (3.5-5.1); SODIUM,NA 139 mmol/L (136-148)
[2020-01-07] MEDS ORDERED: Pantoprazole 40 MG Tab.CR PO SCH (07:30)
[2020-01-07] MEDS: Tamsulosin 0.4 MG Cap.ER PO SCH (08:28)
--- NOTE | 2020-01-07 18:07 | PCM.DCSUM1 ---
<Connor Clemons - Last Filed: 01/07/20 19:23> Discharge Summary - Hospital Course Free Text/Narrative:: 39-year-old male admitted for pain due to a 2mm kidney stone. Patient stated right flank pain, suprapubic pain and RLQ pain. Patient denied any trauma to his testicles, right flank or abdominal area. US scrotum was performed which ruled out testicular torsion. CT abdomen/pelvis showed a small 2 mm obstructing stone within the distal right ureter of the right kidney. Urinalysis shows large occult blood, trace leukocyte esterase, 40 ketones. Patient treated with IV Rocephin, pain controlled with .5mg Dilaudid, Flomax 0.4mg to aid in urethral propulsion of stone and IV fluids. Patient was discharged the following afternoon with no complaints of fever, chills, nausea, vomiting, flank pain, abdominal pain. Patient prescribed 5 days of Levaquin and referred to urology for follow up. - Discharge Data Discharge Date: 01/07/20 Discharge Disposition: Home, Self-Care 01 Condition: Good - Referral to Home Health Primary Care Physician: PCP None - Discharge Plan Prescriptions/Med Rec: levoFLOXacin [Levaquin] 750 mg PO DAILY 5 Days #5 tablet Home Medications: Home Meds levoFLOXacin [Levaquin] 750 mg PO DAILY 5 Days #5 tablet 01/07/20 [Rx] Patient Handouts: Cholelithiasis, Levofloxacin tablets Referrals: Jerica Dorantes MD [Physician] - 01/20/20 2:15 pm Ranjit Altamirano MD [Physician] - 01/25/20 11:15 am - Discharge Summary/Plan Comment DC Time >30 min.: No - Review of Systems General: Denies: Fever, Fatigue, Chills HEENT: Denies: Headaches Pulmonary: Denies: Shortness of Breath, Pleuritic Chest Pain, Cough Cardiovascular: Denies: Chest Pain, Palpitations, Dyspnea on Exertion Gastrointestinal: Denies: Abdominal Pain, Decreased Appetite, Nausea, Vomiting Genitourinary: Denies: Dysuria, Frequency, Burning, Pain, Flank Pain - Patient Data Vitals - Most Recent: Last Vital Signs Temp 98.7 F 01/07/20 12:00 Pulse 75 01/07/20 12:00 Resp 18 01/07/20 12:00 BP 107/62 01/07/20 12:00 Pulse Ox 98 01/07/20 12:00 Weight - Most Recent: 63.1 kg I&O - Last 24 hours: Intake & Output 01/07/20 01/07/20 01/07/20 06:59 14:59 22:59 Intake Total 2087 Output Total 1025 Balance 1062 Lab Results - Last 24 hrs: Laboratory Results - last 24 hr 01/06/20 01/07/20 01/07/20 Range/Units 18:50 05:13 05:13 WBC 7.33 (4.0-11.0) K/uL RBC 4.21 L (4.50-5.90) M/uL Hgb 13.4 (13.0-17.0) g/dL Hct 39.3 (38.0-50.0) % MCV 93.3 (80.0-98.0) fL MCH 31.8 (27.0-32.0) pg MCHC 34.1 (31.0-37.0) g/dL RDW Std Deviation 42.7 (28.0-62.0) fl RDW Coeff of Michele 13 (11.0-15.0) % Plt Count 285 (150-400) K/uL MPV 9.90 (7.40-12.00) fL Neut % (Auto) 51.7 (48.0-80.0) % Lymph % (Auto) 28.1 (16.0-40.0) % [place] % (Auto) 15.7 H (0.0-15.0) % Eos % (Auto) 4.0 (0.0-7.0) % Baso % (Auto) 0.5 (0.0-1.5) % Neut # (Auto) 3.8 (1.4-5.7) K/uL Lymph # (Auto) 2.1 (0.6-2.4) K/uL [place] # (Auto) 1.2 H (0.0-0.8) K/uL Eos # (Auto) 0.3 (0.0-0.7) K/uL Baso # (Auto) 0.0 (0.0-0.1) K/uL Nucleated RBC % 0.0 /100WBC Nucleated RBCs # 0 K/uL Lactate 1.5 (0.20-2.00) mmol/L Sodium 139 (136-148) mmol/L Potassium 3.8 (3.5-5.1) mmol/L Chloride 105 (98-107) mmol/L Carbon Dioxide 23.8 (21.0-32.0) mmol/L BUN 8 (7.0-18.0) mg/dL Creatinine 0.8 (0.8-1.3) mg/dL Est Cr Clr Drug Dosing 109.55 mL/min Estimated GFR (MDRD) > 60.0 ml/min Glucose 77 (74-106) mg/dL Calcium 8.1 L (8.5-10.1) mg/dL Total Bilirubin 1.1 H (0.2-1.0) mg/dL AST 69 H (15-37) IU/L ALT 113 H (14-63) IU/L Alkaline Phosphatase 71 (46-116) U/L Total Protein 5.9 L (6.4-8.2) g/dL Albumin 2.9 L (3.4-5.0) g/dL Globulin 3.0 (2.6-4.0) g/dL Albumin/Globulin Ratio 1.0 (0.9-1.6) Med Orders - Current: Current Medications Discontinued Medications Acetaminophen (Tylenol) 650 mg PO Q4H PRN PRN Reason: Pain/Fever Cephalexin (Keflex) 500 mg PO ONETIME ONE Stop: 01/06/20 18:27 Last Admin: 01/06/20 18:45 Dose: 500 mg Documented by: Enoxaparin Sodium (Lovenox) 40 mg SUBCUT Q24H [facility] Last Admin: 01/06/20 20:48 Dose: 40 mg Documented by: Fentanyl (Fentanyl) 75 mcg IVPUSH ONETIME ONE Stop: 01/06/20 15:29 Last Admin: 01/06/20 15:45 Dose: 75 mcg Documented by: Fentanyl (Fentanyl) 75 mcg IVPUSH ONETIME ONE Stop: 01/06/20 18:26 Last Admin: 01/06/20 18:44 Dose: 75 mcg Documented by: Hydromorphone HCl (Dilaudid) 1 mg IVPUSH ONETIME ONE Stop: 01/06/20 15:54 Last Admin: 01/06/20 15:56 Dose: 1 mg Documented by: Hydromorphone HCl (Dilaudid) 0.5 mg IVPUSH Q2H PRN PRN Reason: Pain Lactated Ringer's (Ringers, Lactated) 1,000 mls @ 999 mls/hr IV .BOLUS ONE Stop: 01/06/20 16:57 Last Admin: 01/06/20 15:59 Dose: 999 mls/hr Documented by: Ceftriaxone Sodium 1 gm/ (Sodium Chloride) 50 mls @ 100 mls/hr IV Q24H [facility] Last Admin: 01/06/20 21:17 Dose: Not Given Documented by: Sodium Chloride (Normal Saline) 1,000 mls @ 200 mls/hr IV ASDIRECTED [facility] Last Admin: 01/07/20 02:37 Dose: 200 mls/hr Documented by: Ceftriaxone Sodium/Dextrose 1 (gm/ Premix) 50 mls @ 100 mls/hr IV Q24H [facility] Last Admin: 01/06/20 21:24 Dose: 100 mls/hr Documented by: Iopamidol (Isovue Multipack-370 (76%)) 100 ml IVPUSH ONETIME STA Stop: 01/06/20 18:19 Last Admin: 01/06/20 18:19 Dose: 100 ml Documented by: Lidocaine HCl (Xylocaine-Mpf 1%) 10 ml INJECT ONETIME ONE Stop: 01/06/20 15:32 Last Admin: 01/06/20 15:34 Dose: 10 ml Documented by: Ondansetron HCl (Zofran) 4 mg IVPUSH ONETIME ONE Stop: 01/06/20 16:42 Last Admin: 01/06/20 16:47 Dose: 4 mg Documented by: Ondansetron HCl (Zofran) 4 mg IVPUSH Q4H PRN PRN Reason: Nausea/Vomiting Pantoprazole Sodium (Protonix) 40 mg PO ACBREAKFAST [facility] Last Admin: 01/07/20 08:28 Dose: 40 mg Documented by: Sodium Chloride (Saline Flush) 10 ml FLUSH ASDIRECTED PRN PRN Reason: Keep Vein Open Last Admin: 01/06/20 15:34 Dose: 10 ml Documented by: Sodium Chloride (Saline Flush) 2.5 ml FLUSH ASDIRECTED PRN PRN Reason: Keep Vein Open Last Admin: 01/06/20 15:34 Dose: 2.5 ml Documented by: Tamsulosin HCl (Flomax) 0.4 mg PO DAILY [facility] Last Admin: 01/07/20 08:28 Dose: 0.4 mg Documented by: - Exam General: Reports: Alert, Oriented HEENT: Reports: EOMI Lungs: Reports: Clear to Auscultation, Normal Respiratory Effort Cardiovascular: Reports: Regular Rate, Regular Rhythm GI/Abdominal Exam: Soft, Non-Tender, No Distention. No: Guarding Back Exam: Denies: CVA Tenderness (L), CVA Tenderness (R) Extremities: Normal Inspection, Normal Range of Motion, No Pedal Edema Skin: Reports: Warm, Dry <Mitch,Hooria - Last Filed: 01/08/20 13:42> Discharge Summary - Hospital Course Free Text/Narrative:: I have seen and evaluated the patient and agree with the residents note unless specified in my note - Referral to Home Health Primary Care Physician: PCP None - Patient Data Vitals - Most Recent: Last Vital Signs Temp 37.1 C 01/07/20 12:00 Pulse 75 01/07/20 12:00 Resp 18 01/07/20 12:00 BP 107/62 01/07/20 12:00 Pulse Ox 98 01/07/20 12:00 ERNA Results - Last 24 hrs: Microbiology 01/06/20 17:34 Urine Culture - Final Urine, Voided MIXED MAYLIN >100,000 CFU/ML Med Orders - Current: Current Medications Discontinued Medications Acetaminophen (Tylenol) 650 mg PO Q4H PRN PRN Reason: Pain/Fever Cephalexin (Keflex) 500 mg PO ONETIME ONE Stop: 01/06/20 18:27 Last Admin: 01/06/20 18:45 Dose: 500 mg Documented by: Enoxaparin Sodium (Lovenox) 40 mg SUBCUT Q24H [facility] Last Admin: 01/06/20 20:48 Dose: 40 mg Documented by: Fentanyl (Fentanyl) 75 mcg IVPUSH ONETIME ONE Stop: 01/06/20 15:29 Last Admin: 01/06/20 15:45 Dose: 75 mcg Documented by: Fentanyl (Fentanyl) 75 mcg IVPUSH ONETIME ONE Stop: 01/06/20 18:26 Last Admin: 01/06/20 18:44 Dose: 75 mcg Documented by: Hydromorphone HCl (Dilaudid) 1 mg IVPUSH ONETIME ONE Stop: 01/06/20 15:54 Last Admin: 01/06/20 15:56 Dose: 1 mg Documented by: Hydromorphone HCl (Dilaudid) 0.5 mg IVPUSH Q2H PRN PRN Reason: Pain Lactated Ringer's (Ringers, Lactated) 1,000 mls @ 999 mls/hr IV .BOLUS ONE Stop: 01/06/20 16:57 Last Admin: 01/06/20 15:59 Dose: 999 mls/hr Documented by: Ceftriaxone Sodium 1 gm/ (Sodium Chloride) 50 mls @ 100 mls/hr IV Q24H [facility] Last Admin: 01/06/20 21:17 Dose: Not Given Documented by: Sodium Chloride (Normal Saline) 1,000 mls @ 200 mls/hr IV ASDIRECTED [facility] Last Admin: 01/07/20 02:37 Dose: 200 mls/hr Documented by: Ceftriaxone Sodium/Dextrose 1 (gm/ Premix) 50 mls @ 100 mls/hr IV Q24H [facility] Last Admin: 01/06/20 21:24 Dose: 100 mls/hr Documented by: Iopamidol (Isovue Multipack-370 (76%)) 100 ml IVPUSH ONETIME STA Stop: 01/06/20 18:19 Last Admin: 01/06/20 18:19 Dose: 100 ml Documented by: Lidocaine HCl (Xylocaine-Mpf 1%) 10 ml INJECT ONETIME ONE Stop: 01/06/20 15:32 Last Admin: 01/06/20 15:34 Dose: 10 ml Documented by: Ondansetron HCl (Zofran) 4 mg IVPUSH ONETIME ONE Stop: 01/06/20 16:42 Last Admin: 01/06/20 16:47 Dose: 4 mg Documented by: Ondansetron HCl (Zofran) 4 mg IVPUSH Q4H PRN PRN Reason: Nausea/Vomiting Pantoprazole Sodium (Protonix) 40 mg PO ACBREAKFAST [facility] Last Admin: 01/07/20 08:28 Dose: 40 mg Documented by: Sodium Chloride (Saline Flush) 10 ml FLUSH ASDIRECTED PRN PRN Reason: Keep Vein Open Last Admin: 01/06/20 15:34 Dose: 10 ml Documented by: Sodium Chloride (Saline Flush) 2.5 ml FLUSH ASDIRECTED PRN PRN Reason: Keep Vein Open Last Admin: 01/06/20 15:34 Dose: 2.5 ml Documented by: Tamsulosin HCl (Flomax) 0.4 mg PO DAILY [facility] Last Admin: 01/07/20 08:28 Dose: 0.4 mg Documented by:
--- NOTE | 2020-01-10 16:35 | US ---
Testicular ultrasound: Multiple real-time images of the testicles were obtained. Comparison: No previous testicular imaging is available. Testicles have a homogeneous ultrasound appearance. No intratesticular abnormality is seen. Both arterial and venous blood flow are seen within the testicles. No significant hydrocele is seen. Epididymides appear within normal limits. Measurements: Right testicle: 4.3 x 1.8 x 2.7 cm Left testicle: 3.4 x 1.6 x 2.6 cm Impression: 1. No abnormality is appreciated on testicular ultrasound study. Diagnostic code #1 This report was dictated in MDT Dictated by: Atif Sharpe MD <Electronically signed by Atif Sharpe MD in [place]> 01/06/20 at 1620 MTDD
== END 2020-01-07 13:35 | disposition home or self-care (01) ==
LOC: MW.ED 15:27 → MW.MS 18:47
PROVIDERS: ADMIT Student in an Organized Health Care Education/Training Program; ATTEND Student in an Organized Health Care Education/Training Program
DX: N20.2 Calculus of kidney with calculus of ureter (principal); F41.9 Anxiety disorder, unspecified; F31.9 Bipolar disorder, unspecified; K76.9 Liver disease, unspecified; R74.0 Nonspecific elevation of levels of transaminase and lactic acid dehydrogenase [LDH]; Z20.828 Contact with and (suspected) exposure to other viral communicable diseases
CPT/HCPCS: 36415; 64425; 74177; 80053; 81001; 83605; 85025; 85610; 87086; 87635; 93976; 96361; 96365; 96372; 96375; 96376; 99285; A9270; G0378; J0696; J1170; J1650; J2001; J2405; J3010; J7030; J7120; Q9967; 93010; 96374; 99217; 99218; U0002

== ENCOUNTER 2020-02-18 04:53 | Emergency (ER) | payer OTHER, BC, MEDICAID ==
--- NOTE | 2020-02-18 05:21 | EDM.PDOC ---
ED HPI GENERAL MEDICAL PROBLEM - General Chief Complaint: General Stated Complaint: EXPOSED TO NEEDLE Time Seen by Provider: 02/18/20 05:04 Source of Information: Reports: Patient History Limitations: Reports: No Limitations - History of Present Illness INITIAL COMMENTS - FREE TEXT/NARRATIVE: Patient is a 39-year-old male who presents today after a needlestick. Patient states he was at work and picked up a roll of pepper tiles and needle was present inside. Patient states he felt a little jittery afterwards. Does not know where the needle came from. Patient currently is not have any symptoms or complaints. Onset: Today - Related Data Allergies Allergy/AdvReac Type Severity Reaction Status Date / Time No Known Allergies Allergy Verified 02/18/20 05:07 Home Meds: Home Meds . [No Known Home Meds] 02/18/20 [History] Past Medical History HEENT History: Reports: None Cardiovascular History: Reports: None Respiratory History: Reports: None Gastrointestinal History: Reports: None Genitourinary History: Reports: None Musculoskeletal History: Reports: None Neurological History: Reports: Headaches, Chronic Other Neuro History: startle when talking long sentences Psychiatric History: Reports: Anxiety, Bipolar, Depression Endocrine/Metabolic History: Reports: None Insulin Pump Model and District Court Bailiff: None Hematologic History: Reports: None Immunologic History: Reports: None Oncologic (Cancer) History: Reports: None Dermatologic History: Reports: None - Infectious Disease History Infectious Disease History: Reports: Hepatitis B - Past Surgical History Head Surgeries/Procedures: Reports: None HEENT Surgical History: Reports: None Neurological Surgical History: Reports: None Social & Family History - Family History Family Medical History: Noncontributory - Tobacco Use Tobacco Use Status *Q: Current Every Day Tobacco User Years of Tobacco use: 20 Packs/Tins Daily: 1 - Caffeine Use Caffeine Use: Reports: None - Recreational Drug Use Recreational Drug Use: Yes ED ROS GENERAL - Review of Systems Review Of Systems: See Below Constitutional: Reports: No Symptoms HEENT: Reports: No Symptoms Respiratory: Reports: No Symptoms Cardiovascular: Reports: No Symptoms Endocrine: Reports: No Symptoms GI/Abdominal: Reports: No Symptoms : Reports: No Symptoms Musculoskeletal: Reports: No Symptoms Skin: Reports: No Symptoms Neurological: Reports: No Symptoms Psychiatric: Reports: No Symptoms Hematologic/Lymphatic: Reports: No Symptoms Immunologic: Reports: No Symptoms ED EXAM, GENERAL - Physical Exam Exam: See Below Exam Limited By: No Limitations General Appearance: Alert, No Apparent Distress Eye Exam: Bilateral Eye: EOMI, PERRL Respiratory/Chest: No Respiratory Distress Cardiovascular: Regular Rate, Rhythm GI/Abdominal: Normal Bowel Sounds, Soft, Non-Tender Neurological: Alert, Oriented, CN II-XII Intact Course - Vital Signs Last Recorded V/S: Last Vital Signs Temp 97.6 F 02/18/20 05:07 Pulse 97 02/18/20 05:07 Resp 18 02/18/20 05:07 BP 131/86 02/18/20 05:07 Pulse Ox 97 02/18/20 05:07 - Orders/Labs/Meds Orders: Active Orders 24 hr Category Date Time Status Vaccines to be Administered [RC] PER UNIT ROUTINE Care 02/18/20 05:38 Active COMPREHENSIVE METABOLIC PN,CMP [CHEM] Stat Lab 02/18/20 05:32 Results HIV12 AG/AB 4TH GEN [CHEM] Urgent Lab 02/18/20 05:32 Results Labs: Laboratory Tests 02/18/20 02/18/20 Range/Units 05:16 05:32 Sodium 137 (136-148) mmol/L Potassium 4.1 (3.5-5.1) mmol/L Chloride 103 (98-107) mmol/L Carbon Dioxide 23.2 (21.0-32.0) mmol/L BUN 11 (7.0-18.0) mg/dL Creatinine 0.6 L (0.8-1.3) mg/dL Est Cr Clr Drug Dosing 152.25 mL/min Estimated GFR (MDRD) > 60.0 ml/min Glucose 98 (74-106) mg/dL Calcium 8.6 (8.5-10.1) mg/dL Total Bilirubin 0.7 (0.2-1.0) mg/dL AST 139 H (15-37) IU/L ALT 121 H (14-63) IU/L Alkaline Phosphatase 71 (46-116) U/L Total Protein 7.6 (6.4-8.2) g/dL Albumin 3.9 (3.4-5.0) g/dL Globulin 3.7 (2.6-4.0) g/dL Albumin/Globulin Ratio 1.1 (0.9-1.6) Urine Opiates Screen NEGATIVE (NEGATIVE) Ur Oxycodone Screen NEGATIVE (NEGATIVE) Urine Methadone Screen NEGATIVE (NEGATIVE) Ur Barbiturates Screen NEGATIVE (NEGATIVE) Ur Phencyclidine Scrn NEGATIVE (NEGATIVE) Ur Amphetamine Screen POSITIVE (NEGATIVE) U Methamphetamines Scrn POSITIVE (NEGATIVE) U Benzodiazepines Scrn NEGATIVE (NEGATIVE) U Cocaine Metab Screen NEGATIVE (NEGATIVE) U Marijuana (THC) Screen NEGATIVE (NEGATIVE) Meds: Medications Discontinued Medications Generic Name Dose Route Start Last Admin Trade Name Freq PRN Reason Stop Dose Admin Diphtheria/Tetanus/Acell Pertussis 0.5 ml 02/18/20 05:38 02/18/20 05:50 Adacel IM 02/18/20 05:39 0.5 ml .ONCE ONE Administration Departure - Departure Time of Disposition: 06:17 Disposition: Home, Self-Care 01 Condition: Good Clinical Impression: Needle stick injury of finger - Discharge Information *PRESCRIPTION DRUG MONITORING PROGRAM REVIEWED*: Not Applicable *COPY OF PRESCRIPTION DRUG MONITORING REPORT IN PATIENT RUBI: Not Applicable Referrals: PCP,Not In Area [Primary Care Provider] - Forms: ED Department Discharge Additional Instructions: The following information is given to patients seen in the emergency department who are being discharged to home. This information is to outline your options for follow-up care. We provide all patients seen in our emergency department with a follow-up referral. The need for follow-up, as well as the timing and circumstances, are variable depending upon the specifics of your emergency department visit. If you don't have a primary care physician on staff, we will provide you with a referral. We always advise you to contact your personal physician following an emergency department visit to inform them of the circumstance of the visit and for follow-up with them and/or the need for any referrals to a consulting specialist. The emergency department will also refer you to a specialist when appropriate. This referral assures that you have the opportunity for follow-up care with a specialist. All of these measure are taken in an effort to provide you with optimal care, which includes your follow-up. Under all circumstances we always encourage you to contact your private physician who remains a resource for coordinating your care. When calling for follow-up care, please make the office aware that this follow-up is from your recent emergency room visit. If for any reason you are refused follow-up, please contact the [facility] Emergency Department at and asked to speak to the emergency department charge nurse. Please call this number in the morning and attempt to follow-up today to receive the HIV prophylaxis medication that we spoke about. Your HIV test is still pending we will give you results when results return the next 3 days. [facility] at [address] [address] Sepsis Event Note (ED) - Evaluation Sepsis Screening Result: No Definite Risk - Focused Exam Vital Signs: Vital Signs Temp Pulse Resp BP Pulse Ox 02/18/20 05:07 97.6 F 97 18 131/86 97 - My Orders Last 24 Hours: My Active Orders 02/18/20 05:32 COMPREHENSIVE METABOLIC PN,CMP [CHEM] Stat HIV12 AG/AB 4TH GEN [CHEM] Urgent 02/18/20 05:38 Vaccines to be Administered [RC] PER UNIT ROUTINE - Assessment/Plan Last 24 Hours: My Active Orders 02/18/20 05:32 COMPREHENSIVE METABOLIC PN,CMP [CHEM] Stat HIV12 AG/AB 4TH GEN [CHEM] Urgent 02/18/20 05:38 Vaccines to be Administered [RC] PER UNIT ROUTINE Plan: 39-year-old male who presents today after a needlestick. Patient is unsure of any cocaine from. We will obtain HIV hepatitis panel and U tox for by PEP for patient. Labs were sent. We do not have HIV PEP in the ED will refer patient to [facility] that will be open in the next few hours patient understands any to go there if he would like to take the PEP medication.
[2020-02-18] MEDS ORDERED: Diphtheria,Pertussis(Acell),Tetanus Vaccine 0.5 ML Syringe IM ONE (05:38)
[2020-02-18 05:57] LABS: BLOOD UREA NITROGEN,BUN 11 mg/dL (7.0-18.0); CARBON DIOXIDE,CO2 23.2 mmol/L (21.0-32.0); CHLORIDE,CL 103 mmol/L (98-107); GLUCOSE RANDOM 98 mg/dL (74-106); POTASSIUM,K 4.1 mmol/L (3.5-5.1); SODIUM,NA 137 mmol/L (136-148)
== END 2020-02-18 06:53 | disposition home or self-care (01) ==
LOC: MW.ED 04:53
DX: Z77.21 Contact with and (suspected) exposure to potentially hazardous body fluids (principal); F17.210 Nicotine dependence, cigarettes, uncomplicated; Z23 Encounter for immunization
CPT/HCPCS: 36415; 80053; 80305-QW; 87389; 90471; 90715; 99282; 99283

== ENCOUNTER 2020-09-15 17:49 | Emergency (ER) | payer BC, MEDICAID ==
--- NOTE | 2020-09-15 20:36 | US ---
INDICATION: Bilateral testicular pain. SCROTAL ULTRASOUND Multiple sonographic images of the scrotum were performed. Comparison: 01/06/2020. The testes appear normal bilaterally, the right testis measuring 4.8 x 1.8 x 2.6 cm and the left testis measuring 4.8 x 1.6 x 2.6 cm. No intratesticular masses are seen. Intratesticular Doppler blood flow is demonstrated bilaterally. The epididymides are within normal limits. A trace right-sided hydrocele is noted. Mild bilateral varicoceles are present. IMPRESSION: 1. Normal sonographic appearance to the testes. No evidence of testicular torsion. 2. Trace right-sided hydrocele. 3. Mild bilateral varicocele. AKHIL BENTLEY MD [employer] [facility] Dictated by David Bentley MD @ 09/15/2020 8:33:03 PM Dictated by: David Bentley MD @ 09/15/2020 20:34:13 (Electronically Signed)
--- NOTE | 2020-09-15 22:55 | EDM.PDOC ---
ED HPI GENERAL MEDICAL PROBLEM - General Chief Complaint: Genitourinary Problem Stated Complaint: GROIN PAIN Time Seen by Provider: 09/15/20 18:13 Source of Information: Reports: Patient History Limitations: Reports: No Limitations - History of Present Illness INITIAL COMMENTS - FREE TEXT/NARRATIVE: I never saw or evaluated the patient before he eloped the ED; patient was seen b brisa PA-Student Chun Pierce while waiting for my evaluation but eloped the ED prior to my ability to personally see or evaluate the patient due to critical status of the ED, scrotal US and UA were obtained while awaiting my ability to see patient. Patient did receive a scrotal ultrasound and urinalysis while waiting to be seen / evaluated but eloped the ED prior to my evaluation. I did call and contact the patient and informed him that I did not see or evaluate him in the ED and he was not evaluated by a provider and notified him of his UA and US report and encouraged patient to return to the ED for formal evaluation by a provider. Expresses understanding and has no questions at this time. Bilateral Scrotum Pain Score (Numeric/FACES): 9 - Related Data Allergies Allergy/AdvReac Type Severity Reaction Status Date / Time No Known Allergies Allergy Verified 09/15/20 18:04 Home Meds: Home Meds . [No Known Home Meds] 02/18/20 [History] Past Medical History - Past Health History Medical/Surgical History: Denies Medical/Surgical History HEENT History: Reports: None Cardiovascular History: Reports: None Respiratory History: Reports: None Gastrointestinal History: Reports: None Genitourinary History: Reports: None Musculoskeletal History: Reports: None Neurological History: Reports: Headaches, Chronic Other Neuro History: startle when talking long sentences Psychiatric History: Reports: Anxiety, Bipolar, Depression Endocrine/Metabolic History: Reports: None Insulin Pump Model and Flight Service Specialist: None Hematologic History: Reports: None Immunologic History: Reports: None Oncologic (Cancer) History: Reports: None Dermatologic History: Reports: None - Infectious Disease History Infectious Disease History: Reports: Hepatitis B - Past Surgical History Head Surgeries/Procedures: Reports: None HEENT Surgical History: Reports: None Cardiovascular Surgical History: Reports: None Respiratory Surgical History: Reports: None GI Surgical History: Reports: None Male Surgical History: Reports: None Endocrine Surgical History: Reports: None Neurological Surgical History: Reports: None Musculoskeletal Surgical History: Reports: None Oncologic Surgical History: Reports: None Dermatological Surgical History: Reports: None Social & Family History - Family History Family Medical History: No Pertinent Family History - Tobacco Use Tobacco Use Status *Q: Current Every Day Tobacco User Years of Tobacco use: 20 Packs/Tins Daily: 0.5 - Caffeine Use Caffeine Use: Reports: None - Recreational Drug Use Recreational Drug Use: No ED ROS GENERAL - Review of Systems Review Of Systems: See Below (see dictation) ED EXAM, GENERAL - Physical Exam Exam: See Below (see dictation) Course - Vital Signs Last Recorded V/S: Last Vital Signs Temp 97.5 F 09/15/20 18:04 Pulse 85 09/15/20 18:04 Resp 18 09/15/20 18:04 BP 108/67 09/15/20 18:04 Pulse Ox 96 09/15/20 18:04 - Orders/Labs/Meds Orders: Active Orders 24 hr Category Date Time Status Scrotum and Contents [US] Stat Exams 09/15/20 18:27 Taken CHLAMYDIA AND GONORRHEA BY TMA Stat Lab 09/15/20 18:01 Received Labs: Laboratory Tests 09/15/20 Range/Units 18:01 Urine Color YELLOW Urine Appearance CLEAR Urine pH 6.0 (5.0-8.0) Ur Specific [place] 1.025 (1.001-1.035) Urine Protein NEGATIVE (NEGATIVE) mg/dL Urine Glucose (UA) NEGATIVE (NEGATIVE) mg/dL Urine Ketones 15 H (NEGATIVE) mg/dL Urine Occult Blood NEGATIVE (NEGATIVE) Urine Nitrite NEGATIVE (NEGATIVE) Urine Bilirubin SMALL H (NEGATIVE) Urine Ictotest NEGATIVE Urine Urobilinogen 1.0 (<2.0) EU/dL Ur Leukocyte Esterase NEGATIVE (NEGATIVE) Departure - Departure Time of Disposition: 20:00 Disposition: Eloped 07 Clinical Impression: Eloped from emergency department - Discharge Information Referrals: PCP,None [Primary Care Provider] - Forms: ED Department Discharge Additional Instructions: Patient eloped the ED prior to being seen Sepsis Event Note (ED) - Evaluation Sepsis Screening Result: No Definite Risk - Focused Exam Vital Signs: Vital Signs Temp Pulse Resp BP Pulse Ox 09/15/20 18:04 97.5 F 85 18 108/67 96 - My Orders Last 24 Hours: My Active Orders 09/15/20 18:01 CHLAMYDIA AND GONORRHEA BY TMA Stat 09/15/20 18:27 Scrotum and Contents [US] Stat - Assessment/Plan Last 24 Hours: My Active Orders 09/15/20 18:01 CHLAMYDIA AND GONORRHEA BY TMA Stat 09/15/20 18:27 Scrotum and Contents [US] Stat
--- NOTE | 2020-09-19 12:16 | US ---
EXAM DATE: 09/15/20 PATIENT'S AGE: 40 Patient: ANJELICA FRAZIER Facility: [facility] Site . Site : 1980 Study: US-Testicle Bilateral -09/15/2020 8:05:51 PM Ordering Physician: ED Provider Temporary Final Report: INDICATION: Bilateral testicular pain. SCROTAL ULTRASOUND Multiple sonographic images of the scrotum were performed. Comparison: 01/06/2020. The testes appear normal bilaterally, the right testis measuring 4.8 x 1.8 x 2.6 cm and the left testis measuring 4.8 x 1.6 x 2.6 cm. No intratesticular masses are seen. Intratesticular Doppler blood flow is demonstrated bilaterally. The epididymides are within normal limits. A trace right-sided hydrocele is noted. Mild bilateral varicoceles are present. IMPRESSION: 1. Normal sonographic appearance to the testes. No evidence of testicular torsion. 2. Trace right-sided hydrocele. 3. Mild bilateral varicocele. AKHIL BENTLEY MD [facility] [employer] Dictated by David Bentley MD @ 09/15/2020 8:33:03 PM Dictated by: David Bentley MD @ 09/15/2020 20:34:13 Signed by: David Bentley MD @09/15/2020 8:34:13 PM (Electronic Signature) Report Signed by Proxy. [facility]ITALKeyona
[2020-09-19 16:07] LABS: C.TRACHOMATIS BY TMA Negative (Negative); N.GONORRHOEAE BY TMA Negative (Negative)
== END 2020-09-15 20:53 | disposition left against medical advice (07) ==
LOC: MW.ED 17:49
DX: R10.30 Lower abdominal pain, unspecified (principal); Z53.21 Procedure and treatment not carried out due to patient leaving prior to being seen by health care provider
CPT/HCPCS: 76870; 76870-26; 81003; 87491; 87591; 93976; 93976-26

== ENCOUNTER 2020-10-24 18:51 | Emergency (ER) | payer BC, MEDICAID ==
--- NOTE | 2020-10-24 19:26 | EDM.PDOC ---
ED HPI GENERAL MEDICAL PROBLEM - General Chief Complaint: General Stated Complaint: FOUND UNRESPONSIVE Time Seen by Provider: 10/24/20 19:20 - History of Present Illness INITIAL COMMENTS - FREE TEXT/NARRATIVE: History of present illness: []The patient had an insidious onset headache yesterday and was nauseated and vomtiing. Today it gradually got worse until it is severe. He reports slightly blurred vision. He has had these headaches in the past and never had time to get it worked up by a medical team. He is nopt aware of any family history of migraines. While he says stress is not a big issue he has recently developed increasing problems sleeping well. Review of systems: As per history of present illness and below otherwise all systems reviewed and negative. Past medical history: As per history of present illness and as reviewed below otherwise noncontributory. Surgical history: As per history of present illness and as reviewed below otherwise noncontributory. Social history: No reported history of drug or alcohol abuse. Family history: As per history of present illness and as reviewed below otherwise noncontributory. Physical exam: Constitutional - extremely thin and in acute distress HEENT - Brudzinski negative - normocephalic, no evidence of trauma - external nose and mouth normal - no mass in neck and no JVD - mucosae moist EYES - full EOM, PERRL, no icterus - no evidence of inflammation, injection, or drainage Respiratory - no respiratory distress, equal bilateral expansion, lungs clear to auscultation and no abnormal lung sounds Cardiovascular - Regular Rhythm with S1 and S2 appreciated and no murmur, gallop or rub. GI - abdomen soft without distension or organomegaly - normal bowel sounds - no guard or rebound. Tender LLQ. Musculoskeletal no gross deformity of long bones or joints - no tenderness, swelling or edema Neurologic - My customary brief neurologic exam is normal - Alert and oriented times four - CN II-XII grossly intact - motor sensory and coordination symme trically normal Psychiatric - appropriate mood and affect with normal thought content Hematologic - No petechiae or purpura - mucosa appropriate color and sclera not pale - normal nail bed color and refill Integument - no rash or evidence of trauma - normal turgor Diagnostics: [] Therapeutics: [] Impression: [] Plan: [] Definitive disposition and diagnosis as appropriate pending reevaluation and review of above. Middle Forehead Pain Score (Numeric/FACES): 6 head Pain Score (Numeric/FACES): 7 - Related Data Allergies Allergy/AdvReac Type Severity Reaction Status Date / Time No Known Allergies Allergy Verified 10/24/20 19:16 Home Meds: Home Meds . [No Known Home Meds] 02/18/20 [History] Past Medical History - Past Health History Medical/Surgical History: Denies Medical/Surgical History HEENT History: Reports: None Cardiovascular History: Reports: None Respiratory History: Reports: None Gastrointestinal History: Reports: None Genitourinary History: Reports: None Musculoskeletal History: Reports: None Neurological History: Reports: Headaches, Chronic Other Neuro History: startle when talking long sentences Psychiatric History: Reports: Anxiety, Bipolar, Depression Endocrine/Metabolic History: Reports: None Insulin Pump Model and Metal Refiner: None Hematologic History: Reports: None Immunologic History: Reports: None Oncologic (Cancer) History: Reports: None Dermatologic History: Reports: None - Infectious Disease History Infectious Disease History: Reports: Hepatitis B - Past Surgical History Head Surgeries/Procedures: Reports: None HEENT Surgical History: Reports: None Cardiovascular Surgical History: Reports: None Respiratory Surgical History: Reports: None GI Surgical History: Reports: None Male Surgical History: Reports: None Endocrine Surgical History: Reports: None Neurological Surgical History: Reports: None Musculoskeletal Surgical History: Reports: None Oncologic Surgical History: Reports: None Dermatological Surgical History: Reports: None Social & Family History - Family History Family Medical History: No Pertinent Family History - Caffeine Use Caffeine Use: Reports: None ED ROS GENERAL - Review of Systems Review Of Systems: Comprehensive ROS is negative, except as noted in HPI. ED EXAM, GENERAL - Physical Exam Exam: See Below Free Text/Narrative:: My physical exam is in my HPI. Course - Vital Signs Text/Narrative:: 2052 patient feels better. His CT report is not available but it looks unremarkable to me. Patient is markedly improved and admits that he did use cocaine and meth but this was something he does not usually do. I think this is likely the cause of his headache. He says he does not need any help to stop using them he just experimented with it. Last Recorded V/S: Last Vital Signs Temp 36.5 C 10/24/20 19:16 Pulse 76 10/24/20 19:16 Resp 19 10/24/20 19:16 BP 101/70 10/24/20 19:16 Pulse Ox 96 10/24/20 19:16 - Orders/Labs/Meds Orders: Active Orders 24 hr Category Date Time Status Head wo Cont [CT] Stat Exams 10/24/20 19:34 Taken Sodium Chloride 0.9% [Saline Flush] Med 10/24/20 19:34 Active 10 ml FLUSH ASDIRECTED PRN Sodium Chloride 0.9% [Saline Flush] Med 10/24/20 19:34 Active 2.5 ml FLUSH ASDIRECTED PRN Saline Lock Insert [OM.PC] Stat Oth 10/24/20 19:34 Ordered Medication Orders Sodium Chloride (Sodium Chloride 0.9% 10 Ml Syringe) 10 ml FLUSH ASDIRECTED PRN PRN Reason: Keep Vein Open Last Admin: 10/24/20 19:39 Dose: 10 ml Documented by: VICKI Sodium Chloride (Sodium Chloride 0.9% 2.5 Ml Syringe) 2.5 ml FLUSH ASDIRECTED PRN PRN Reason: Keep Vein Open Last Admin: 10/24/20 19:39 Dose: 2.5 ml Documented by: VICKI Labs: Laboratory Tests 10/24/20 10/24/20 10/24/20 Range/Units 19:09 19:09 20:20 WBC 6.81 (4.0-11.0) K/uL RBC 4.84 (4.50-5.90) M/uL Hgb 15.1 (13.0-17.0) g/dL Hct 42.4 (38.0-50.0) % MCV 87.6 (80.0-98.0) fL MCH 31.2 (27.0-32.0) pg MCHC 35.6 (31.0-37.0) g/dL RDW Std Deviation 41.3 (28.0-62.0) fl RDW Coeff of Michele 13 (11.0-15.0) % Plt Count 378 (150-400) K/uL MPV 9.80 (7.40-12.00) fL Neut % (Auto) 45.2 L (48.0-80.0) % Lymph % (Auto) 38.9 (16.0-40.0) % [place] % (Auto) 9.5 (0.0-15.0) % Eos % (Auto) 5.7 (0.0-7.0) % Baso % (Auto) 0.7 (0.0-1.5) % Neut # (Auto) 3.1 (1.4-5.7) K/uL Lymph # (Auto) 2.7 H (0.6-2.4) K/uL [place] # (Auto) 0.7 (0.0-0.8) K/uL Eos # (Auto) 0.4 (0.0-0.7) K/uL Baso # (Auto) 0.1 (0.0-0.1) K/uL Nucleated RBC % 0.0 /100WBC Nucleated RBCs # 0 K/uL Sodium 136 (136-148) mmol/L Potassium 3.8 (3.5-5.1) mmol/L Chloride 101 (98-107) mmol/L Carbon Dioxide 23.6 (21.0-32.0) mmol/L BUN 15 (7.0-18.0) mg/dL Creatinine 0.8 (0.8-1.3) mg/dL Est Cr Clr Drug Dosing 113.04 mL/min Estimated GFR (MDRD) > 60.0 ml/min Glucose 123 H (74-106) mg/dL Calcium 8.2 L (8.5-10.1) mg/dL Total Bilirubin 0.5 (0.2-1.0) mg/dL AST 77 H (15-37) IU/L ALT 82 H (14-63) IU/L Alkaline Phosphatase 87 (46-116) U/L Total Protein 6.7 (6.4-8.2) g/dL Albumin 2.9 L (3.4-5.0) g/dL Globulin 3.8 (2.6-4.0) g/dL Albumin/Globulin Ratio 0.8 L (0.9-1.6) Urine Opiates Screen NEGATIVE (NEGATIVE) Ur Oxycodone Screen NEGATIVE (NEGATIVE) Urine Methadone Screen NEGATIVE (NEGATIVE) Ur Barbiturates Screen NEGATIVE (NEGATIVE) Ur Phencyclidine Scrn NEGATIVE (NEGATIVE) Ur Amphetamine Screen POSITIVE (NEGATIVE) U Methamphetamines Scrn POSITIVE (NEGATIVE) U Benzodiazepines Scrn NEGATIVE (NEGATIVE) U Cocaine Metab Screen POSITIVE (NEGATIVE) U Marijuana (THC) Screen NEGATIVE (NEGATIVE) Ethyl Alcohol 38 mg/dL Meds: Medications Generic Name Dose Route Start Last Admin Trade Name Lucia PRN Reason Stop Dose Admin Sodium Chloride 10 ml 10/24/20 19:34 10/24/20 19:39 Sodium Chloride 0.9% 10 Ml Syringe FLUSH 10 ml ASDIRECTED PRN Administration Keep Vein Open Sodium Chloride 2.5 ml 10/24/20 19:34 10/24/20 19:39 Sodium Chloride 0.9% 2.5 Ml Syringe FLUSH 2.5 ml ASDIRECTED PRN Administration Keep Vein Open Discontinued Medications Generic Name Dose Route Start Last Admin Trade Name Lucia PRN Reason Stop Dose Admin Diphenhydramine HCl 50 mg 10/24/20 19:34 10/24/20 19:41 Diphenhydramine 50 Mg/Ml Sdv IVPUSH 10/24/20 19:35 50 mg ONETIME ONE Administration Ketorolac Tromethamine 15 mg 10/24/20 19:34 10/24/20 19:41 Ketorolac 15 Mg/Ml Sdv IVPUSH 10/24/20 19:35 15 mg ONETIME ONE Administration Metoclopramide HCl 10 mg 10/24/20 19:34 10/24/20 19:41 Metoclopramide 10 Mg/2 Ml Sdv IVPUSH 10/24/20 19:35 10 mg ONETIME ONE Administration Departure - Departure Time of Disposition: 20:54 Disposition: Home, Self-Care 01 Condition: Good Clinical Impression: Headache Qualifiers: Headache type: unspecified Headache chronicity pattern: unspecified pattern Intractability: not intractable Qualified Code(s): R51 - Headache - Discharge Information Instructions: General Headache Without Cause, [id number] Forms: ED Department Discharge Additional Instructions: Please do not take or use any medicines or drugs that might elevate your blood pressure and cause you to be more likely to have a headache. If you continue to have symptoms or have headache with a fever you should be seen again. [facility] - Primary Care [address] [place] [address] [id number] [address] [id number] The following information is given to patients seen in the emergency department who are being discharged to home. This information is to outline your options for follow-up care. We provide all patients seen in our emergency department with a follow-up referral. The need for follow-up, as well as the timing and circumstances, are variable depending upon the specifics of your emergency department visit. If you don't have a primary care physician on staff, we will provide you with a referral. We always advise you to contact your personal physician following an emergency department visit to inform them of the circumstance of the visit and for follow-up with them and/or the need for any referrals to a consulting specialist. The emergency department will also refer you to a specialist when appropriate. This referral assures that you have the opportunity for follow-up care with a specialist. All of these measure are taken in an effort to provide you with optimal care, which includes your follow-up. Under all circumstances we always encourage you to contact your private physician who remains a resource for coordinating your care. When calling for follow-up care, please make the office aware that this follow-up is from your recent emergency room visit. If for any reason you are refused follow-up, please contact the [facility] Emergency Department at and asked to speak to the emergency department charge nurse. Sepsis Event Note (ED) - Focused Exam Vital Signs: Vital Signs Temp Pulse Resp BP BP Pulse Ox 10/24/20 19:16 36.5 C 76 19 101/70 96 10/24/20 18:51 36.6 C 83 18 114/72 94 L - My Orders Last 24 Hours: My Active Orders 10/24/20 19:34 Head wo Cont [CT] Stat Sodium Chloride 0.9% [Saline Flush] 10 ml FLUSH ASDIRECTED PRN Sodium Chloride 0.9% [Saline Flush] 2.5 ml FLUSH ASDIRECTED PRN Saline Lock Insert [OM.PC] Stat - Assessment/Plan Last 24 Hours: My Active Orders 10/24/20 19:34 Head wo Cont [CT] Stat Sodium Chloride 0.9% [Saline Flush] 10 ml FLUSH ASDIRECTED PRN Sodium Chloride 0.9% [Saline Flush] 2.5 ml FLUSH ASDIRECTED PRN Saline Lock Insert [OM.PC] Stat
[2020-10-24] MEDS ORDERED: Metoclopramide 10 MG/2 ML SDV IVPUSH ONE (19:34)
[2020-10-24] MEDS ORDERED: Sodium Chloride 0.9% 2.5 ML Syringe FLUSH PRN (19:34)
[2020-10-24] MEDS ORDERED: Sodium Chloride 0.9% 10 ML Syringe FLUSH PRN (19:34)
[2020-10-24] MEDS ORDERED: Ketorolac 15 MG/ML SDV IVPUSH ONE (19:34)
[2020-10-24] MEDS ORDERED: diphenhydrAMINE 50 MG/ML SDV IVPUSH ONE (19:34)
[2020-10-24 20:04] LABS: BLOOD UREA NITROGEN,BUN 15 mg/dL (7.0-18.0); CARBON DIOXIDE,CO2 23.6 mmol/L (21.0-32.0); CHLORIDE,CL 101 mmol/L (98-107); GLUCOSE RANDOM 123 mg/dL (74-106); POTASSIUM,K 3.8 mmol/L (3.5-5.1); SODIUM,NA 136 mmol/L (136-148)
--- NOTE | 2020-10-24 21:00 | CT ---
INDICATION: Headache with blurry vision. TECHNIQUE: CT head without i.v. contrast. COMPARISON: Comparison head CT dated 12/01/2017 FINDINGS: CSF spaces: Within normal limits for age. Brain parenchyma: The brain parenchyma is normal in appearance with preservation of the chen-white differentiation. No sign of mass, hemorrhage, or midline shift seen. Skull base and calvarium: The visualized paranasal sinuses are well aerated. The mastoid air cells are clear. The visualized orbits are grossly unremarkable. No skull fractures are seen. IMPRESSION: 1. Negative head CT. Please note that all CT scans at this facility use dose modulation, iterative reconstruction, and/or weight-based dosing when appropriate to reduce radiation dose to as low as reasonably achievable. Dictated by Nikos Regalado MD @ 10/24/2020 8:59:[address] Nikos Regalado @ Oct 24 2020 8:59PM
== END 2020-10-24 21:03 | disposition home or self-care (01) ==
LOC: MW.ED 18:51
DX: R51.9 Headache, unspecified (principal)
CPT/HCPCS: 36415; 70450; 80053; 80305; 80307; 85025; 96374; 96375; 99285; J1200; J1885; J2765